=== PATIENT | male | born 1945 | race African-American/Black ===

== ENCOUNTER 2019-09-06 09:27 | Inpatient (IN) | payer MEDICARE, OTHER ==
[~2019-09-06] VITALS: Ht 172.7 cm; Wt 95.7 kg
[2019-09-06] VITALS (11 sets, daily range): BP systolic 115–185; BP diastolic 57–88
[~2019-09-06 09:27] MED LIST: ASA; CLONIDINE PO; COZAAR PO; DIOVAN; HCTZ; LOVAZA; METFORMIN; ZOCOR; [UNRECOGNIZED DRUG - OTHER]
[2019-09-06] MEDS ORDERED: ETOMIDATE 2MG/ML 10ML VIAL IV ONE ×2 (10:02→10:30)
[2019-09-06] MEDS ORDERED: SUCCINYLCHOLINE CHLORIDE 200MG/10ML IV ONE ×2 (10:02→10:30)
[2019-09-06] MEDS ORDERED: PROPOFOL 10MG/ML 100ML 100 ML IV ONE ×3 (10:30→20:59)
[2019-09-06 11:02] LABS: BG BASE EXCESS -21.5 mmol/L (-2.0-2.0); BG CARBOXYHEMOGLOBIN 0.2 % (0.5-1.5); BG DEOXYHEMOGLOBIN 3.7 % (0.0-5.0); BG HCO3 ACT 10.8 mmol/L (22.0-26.0); BG METHEMOGLOBIN 0.3 % (0.0-1.5); BG OXYGEN SATURATION 96.3 % (92.0-98.5); BG OXYHEMOGLOBIN 95.8 % (94.0-97.0); BG PCO2 53.7 mmHg (35.0-45.0); BG PO2 119.2 mmHg (75.0-100.0); BG SAMPLE SITE RIGHT RADIAL; BG TIDAL VOLUME(mL) 500 mL; BG TOTAL HEMOGLOBIN 11.7 g/dL (12.0-18.0); BG VENT MODE VENT - A/C; BG VENT RATE 12 set
[2019-09-06 11:15] LABS: CHLORIDE 113 mEq/L (98-107)
[2019-09-06 11:21] LABS: PROTHROMBIN TIME 11.2 sec (9.6-11.0)
[2019-09-06 11:32] LABS: BASOPHILS % 1.1 % (0.0-2.0); EOSINOPHILS % 1.8 % (0.0-5.0); HEMATOCRIT. 36.5 % (42.0-52.0); HEMOGLOBIN. 11.6 g/dL (14.0-18.0); LYMPHOCYTES % 32.3 % (20.0-50.0); MEAN CORPUSCULAR HEMOGLOBIN 28.8 pg (28.0-32.0); MEAN CORPUSCULAR VOLUME 91.2 fL (80.0-94.0); MEAN PLATELET VOLUME 10.6 fl (7.4-10.4); NEUTROPHILS % 57.8 % (40.0-76.0); PLATELET 248 x1000/uL (130-400); RED BLOOD CELL COUNT 4.01 mill/uL (4.7-6.1); RED CELL DISTRIBUTION WIDTH 18.5 % (11.6-14.6)
[2019-09-06] MEDS ORDERED: FUROSEMIDE 100MG/10ML VIAL IV STA (13:07)
[2019-09-06] MEDS ORDERED: SODIUM BICARBONATE 8.4% 1 MEQ/ML 50ML SYR IV ONE (13:15)
[2019-09-06] MEDS ORDERED: CALCIUM CHLORIDE 1GM/10ML SYR IV ONE (13:15)
[2019-09-06] MEDS ORDERED: ALBUTEROL (0.083%) 2.5MG/3ML NEB HHN ONE (13:15)
[2019-09-06] MEDS ORDERED: INSULIN REGULAR (HUMULIN R) 300UNITS/3ML IV ONE (13:15)
[2019-09-06] MEDS ORDERED: DEXTROSE 50% WATER 50ML SYRINGE IV ONE (13:15)
[2019-09-06] MEDS ORDERED: VANCOMYCIN 1 G PREMIX 200 ML IV ONE (13:30)
[2019-09-06] MEDS ORDERED: PIPERACILLIN/TAZ 3.375G PREMIX 50 ML IV ONE (13:30)
[2019-09-06] MEDS ORDERED: DEXTROSE 50% WATER 50ML SYRINGE IV PRN (13:45)
[2019-09-06] MEDS ORDERED: ACETAMINOPHEN 325MG TABLET PO PRN (13:45)
[2019-09-06] MEDS ORDERED: ONDANSETRON HCL 4MG/2ML INJ IV PRN (13:45)
[2019-09-06] MEDS ORDERED: AZITHROMYCIN 500 MG in DEXT 5% WATER 250 ML IV SCH (14:15)
[2019-09-06] MEDS ORDERED: CEFTRIAXONE 1 G PREMIX 50 ML IV SCH (14:15)
[2019-09-06 16:25] LABS: C REACTIVE PROTEIN QUANT 0.6 mg/L (0.0-3.0)
[2019-09-06] MEDS ORDERED: NOREPINEPHRINE 4MG/250ML PMX 250 ML IV NR (17:00)
[2019-09-06] MEDS ORDERED: BLOOD SUGAR DIAGNOSTIC STRIP TEST SCH (17:00)
[2019-09-06] MEDS: BLOOD SUGAR DIAGNOSTIC STRIP TEST SCH ×3 (17:00→23:36)
[2019-09-06 17:17] LABS: BG BASE EXCESS -19.6 mmol/L (-2.0-2.0); BG CARBOXYHEMOGLOBIN 0.3 % (0.5-1.5); BG DEOXYHEMOGLOBIN 3.1 % (0.0-5.0); BG HCO3 ACT 11.4 mmol/L (22.0-26.0); BG METHEMOGLOBIN 0.3 % (0.0-1.5); BG OXYGEN SATURATION 96.9 % (92.0-98.5); BG OXYHEMOGLOBIN 96.3 % (94.0-97.0); BG PCO2 50.5 mmHg (35.0-45.0); BG PH 6.972 (7.350-7.450); BG PO2 109.2 mmHg (75.0-100.0); BG SAMPLE SITE RIGHT BRACHIAL; BG TIDAL VOLUME(mL) 500 mL; BG VENT MODE VENT - A/C; BG VENT RATE 18 set
[2019-09-06] MEDS ORDERED: SODIUM BICARBONATE 8.4% 1 MEQ/ML 50ML SYR IV NR ×2 (18:17→22:45)
[2019-09-06] MEDS: INSULIN LISPRO 100 UNITS/ML SUBCUT SCH ×3 (18:34→23:36)
[2019-09-06] MEDS: SODIUM BICARBONATE 150 MEQ in DEXTROSE 5% WATER 1,000 ML IV SCH (18:53)
[2019-09-06] MEDS ORDERED: AMLODIPINE 5MG TABLET PO SCH (21:00)
[2019-09-06] MEDS ORDERED: INSULIN LISPRO 100 UNITS/ML SUBCUT SCH (21:00)
[2019-09-06 22:16] LABS: BG BASE EXCESS -16.5 mmol/L (-2.0-2.0); BG CARBOXYHEMOGLOBIN 0.3 % (0.5-1.5); BG DEOXYHEMOGLOBIN 1.1 % (0.0-5.0); BG FRACTION INSPIRED OXYGEN 100; BG HCO3 ACT 12.1 mmol/L (22.0-26.0); BG METHEMOGLOBIN 0.3 % (0.0-1.5); BG OXYGEN SATURATION 98.9 % (92.0-98.5); BG OXYHEMOGLOBIN 98.3 % (94.0-97.0); BG PH 7.109 (7.350-7.450); BG PO2 155.9 mmHg (75.0-100.0); BG SAMPLE SITE LEFT RADIAL; BG TIDAL VOLUME(mL) 500 mL; BG TOTAL HEMOGLOBIN 10.1 g/dL (12.0-18.0); BG VENT MODE VENT - A/C; BG VENT RATE 18 set
[2019-09-06] MEDS: PROPOFOL 10MG/ML 100ML 100 ML IV PRN (23:07)
[2019-09-07] VITALS (86 sets, daily range): BP systolic 101–190; BP diastolic 44–122
[2019-09-07] MEDS: IPRATROPIUM/ALBUTEROL 0.5-3(2.5)MG/3ML NEB HHN SCH ×4 (02:00→20:29)
[2019-09-07] MEDS: PROPOFOL 10MG/ML 100ML 100 ML IV PRN ×4 (02:55→15:56)
[2019-09-07 05:42] LABS: BASOPHILS % 0.2 % (0.0-2.0); HEMATOCRIT. 26.6 % (42.0-52.0); HEMOGLOBIN. 8.8 g/dL (14.0-18.0); LYMPHOCYTES % 8.2 % (20.0-50.0); MEAN CORPUSCULAR HEMOGLOBIN 28.4 pg (28.0-32.0); MEAN CORPUSCULAR VOLUME 86.1 fL (80.0-94.0); MEAN PLATELET VOLUME 10.3 fl (7.4-10.4); MONOCYTES % 11.5 % (2.0-8.0); NEUTROPHILS % 80.1 % (40.0-76.0); PLATELET 149 x1000/uL (130-400); RED BLOOD CELL COUNT 3.09 mill/uL (4.7-6.1); RED CELL DISTRIBUTION WIDTH 17.5 % (11.6-14.6)
[2019-09-07 05:49] LABS: CHLORIDE 113 mEq/L (98-107)
[2019-09-07 06:02] LABS: PHOSPHORUS 4.9 mg/dL (2.5-4.9)
[2019-09-07 06:03] LABS: LDL CHOLESTEROL 49 mg/dL (5-100)
[2019-09-07 06:05] LABS: HDL CHOLESTEROL 69 mg/dL (40-59)
[2019-09-07] MEDS: INSULIN LISPRO 100 UNITS/ML SUBCUT SCH ×4 (06:30→20:37)
[2019-09-07] MEDS: BLOOD SUGAR DIAGNOSTIC STRIP TEST SCH ×4 (06:30→20:37)
[2019-09-07] MEDS ORDERED: LIDOCAINE HCL 1% 20ML VIAL (Pyxis) INJ ONE (07:44)
[2019-09-07] MEDS ORDERED: HEPARIN 1000 UNITS/ML 10ML ONE (07:45)
[2019-09-07] MEDS: PANTOPRAZOLE SODIUM 40 MG/VIAL IV SCH (08:46)
[2019-09-07] MEDS ORDERED: ENOXAPARIN 30MG/0.3ML SYR SUBCUT SCH (09:00)
[2019-09-07] MEDS: SODIUM BICARBONATE 150 MEQ in DEXTROSE 5% WATER 1,000 ML IV SCH ×2 (09:58→21:02)
[2019-09-07 10:32] LABS: BG BASE EXCESS -6.7 mmol/L (-2.0-2.0); BG CARBOXYHEMOGLOBIN 0.3 % (0.5-1.5); BG DEOXYHEMOGLOBIN 1.2 % (0.0-5.0); BG FRACTION INSPIRED OXYGEN 50; BG HCO3 ACT 16.9 mmol/L (22.0-26.0); BG METHEMOGLOBIN 0.3 % (0.0-1.5); BG OXYGEN SATURATION 98.8 % (92.0-98.5); BG OXYHEMOGLOBIN 98.2 % (94.0-97.0); BG PCO2 26.3 mmHg (35.0-45.0); BG PH 7.425 (7.350-7.450); BG PO2 144.1 mmHg (75.0-100.0); BG SAMPLE SITE RIGHT RADIAL; BG TIDAL VOLUME(mL) 550 mL; BG TOTAL HEMOGLOBIN 7.3 g/dL (12.0-18.0); BG VENT MODE VENT - A/C; BG VENT RATE 26 set
[2019-09-07] MEDS ORDERED: CLONIDINE 0.1MG TABLET PO SCH (13:00)
[2019-09-07] MEDS: LOSARTAN POTASSIUM 100 MG TABLET PO SCH (13:42)
[2019-09-07] MEDS: AMLODIPINE 10MG TABLET PO SCH (13:43)
[2019-09-07] MEDS ORDERED: AZITHROMYCIN 500 MG in DEXT 5% WATER 250 ML IV SCH (13:45)
[2019-09-07] MEDS ORDERED: CEFTRIAXONE 1 G PREMIX 50 ML IV SCH (14:30)
[2019-09-07] MEDS: MORPHINE SULFATE 2 MG/ML CPJ (NOT FOR IM USE) IV PRN (14:39)
[2019-09-07] MEDS: AZITHROMYCIN 500 MG in DEXT 5% WATER 250 ML IV SCH (15:58)
[2019-09-07] MEDS ORDERED: MONT10TA26 PO (16:34)
[2019-09-07] MEDS ORDERED: TRIA50CA2 PO (16:34)
[2019-09-07] MEDS ORDERED: AMLO10TA80 MT (16:34)
[2019-09-07] MEDS ORDERED: LORA10TA7 PO (16:34)
[2019-09-07] MEDS: CLONIDINE 0.1MG TABLET PO SCH (20:37)
[2019-09-07] MEDS: ENOXAPARIN 40MG/0.4ML SYR SUBCUT SCH (20:38)
[2019-09-08] VITALS (47 sets, daily range): BP systolic 133–203; BP diastolic 58–101
[2019-09-08] MEDS: PROPOFOL 10MG/ML 100ML 100 ML IV PRN ×2 (01:11→05:40)
[2019-09-08] MEDS: IPRATROPIUM/ALBUTEROL 0.5-3(2.5)MG/3ML NEB HHN SCH ×4 (02:14→21:21)
[2019-09-08] MEDS: CLONIDINE 0.1MG TABLET PO SCH ×3 (05:39→21:19)
[2019-09-08 05:51] LABS: BASOPHILS % 0.9 % (0.0-2.0); EOSINOPHILS % 0.2 % (0.0-5.0); HEMATOCRIT. 26.8 % (42.0-52.0); HEMOGLOBIN. 9.2 g/dL (14.0-18.0); MEAN CORPUSCULAR HEMOGLOBIN 29.3 pg (28.0-32.0); MEAN CORPUSCULAR VOLUME 85.2 fL (80.0-94.0); MEAN PLATELET VOLUME 10.9 fl (7.4-10.4); MONOCYTES % 12.7 % (2.0-8.0); NEUTROPHILS % 70.2 % (40.0-76.0); PLATELET 167 x1000/uL (130-400); RED BLOOD CELL COUNT 3.15 mill/uL (4.7-6.1); RED CELL DISTRIBUTION WIDTH 17.8 % (11.6-14.6)
[2019-09-08 05:52] LABS: CHLORIDE 104 mEq/L (98-107)
[2019-09-08] MEDS: SODIUM BICARBONATE 150 MEQ in DEXTROSE 5% WATER 1,000 ML IV SCH (06:00)
[2019-09-08 06:12] LABS: PHOSPHORUS 4.4 mg/dL (2.5-4.9)
[2019-09-08] MEDS: BLOOD SUGAR DIAGNOSTIC STRIP TEST SCH ×4 (07:50→21:00)
[2019-09-08] MEDS: INSULIN LISPRO 100 UNITS/ML SUBCUT SCH ×4 (07:58→21:00)
[2019-09-08] MEDS: AMLODIPINE 10MG TABLET PO SCH (08:09)
[2019-09-08] MEDS: LOSARTAN POTASSIUM 100 MG TABLET PO SCH (08:09)
[2019-09-08] MEDS: PANTOPRAZOLE SODIUM 40 MG/VIAL IV SCH (08:09)
[2019-09-08 08:48] LABS: BG BASE EXCESS 5.4 mmol/L (-2.0-2.0); BG CARBOXYHEMOGLOBIN 0.3 % (0.5-1.5); BG DEOXYHEMOGLOBIN 1.4 % (0.0-5.0); BG FRACTION INSPIRED OXYGEN 40; BG HCO3 ACT 26.5 mmol/L (22.0-26.0); BG METHEMOGLOBIN 0.2 % (0.0-1.5); BG OXYGEN SATURATION 98.6 % (92.0-98.5); BG OXYHEMOGLOBIN 98.1 % (94.0-97.0); BG PCO2 26.7 mmHg (35.0-45.0); BG PH 7.615 (7.350-7.450); BG PO2 133.6 mmHg (75.0-100.0); BG SAMPLE SITE RIGHT RADIAL; BG TIDAL VOLUME(mL) 550 mL; BG VENT MODE VENT - A/C; BG VENT RATE 24 set
[2019-09-08 11:36] LABS: BG BASE EXCESS 5.1 mmol/L (-2.0-2.0); BG CARBOXYHEMOGLOBIN 0.3 % (0.5-1.5); BG DEOXYHEMOGLOBIN 1.4 % (0.0-5.0); BG FRACTION INSPIRED OXYGEN 40; BG HCO3 ACT 27.8 mmol/L (22.0-26.0); BG METHEMOGLOBIN 0.3 % (0.0-1.5); BG OXYGEN SATURATION 98.6 % (92.0-98.5); BG PCO2 33.8 mmHg (35.0-45.0); BG PH 7.533 (7.350-7.450); BG PO2 146.6 mmHg (75.0-100.0); BG PRESSURE SUPPORT 8; BG SAMPLE SITE RIGHT RADIAL; BG TOTAL HEMOGLOBIN 10.1 g/dL (12.0-18.0); BG VENT MODE VENT - CPAP
[2019-09-08] MEDS: AZITHROMYCIN 500 MG in DEXT 5% WATER 250 ML IV SCH (12:46)
[2019-09-08] MEDS: CEFTRIAXONE 1 G PREMIX 50 ML IV SCH (14:49)
[2019-09-08] MEDS: ENOXAPARIN 40MG/0.4ML SYR SUBCUT SCH (21:09)
[2019-09-09] VITALS (38 sets, daily range): BP systolic 124–180; BP diastolic 51–83
[2019-09-09] MEDS: MORPHINE SULFATE 2 MG/ML CPJ (NOT FOR IM USE) IV PRN (01:48)
[2019-09-09] MEDS: IPRATROPIUM/ALBUTEROL 0.5-3(2.5)MG/3ML NEB HHN SCH ×4 (02:12→20:40)
[2019-09-09] MEDS: CLONIDINE 0.1MG TABLET PO SCH ×3 (05:20→21:08)
[2019-09-09 05:33] LABS: HEMATOCRIT. 27.5 % (42.0-52.0); HEMOGLOBIN. 9.1 g/dL (14.0-18.0); MEAN CORPUSCULAR HEMOGLOBIN 28.8 pg (28.0-32.0); MEAN CORPUSCULAR VOLUME 86.7 fL (80.0-94.0); MEAN PLATELET VOLUME 10.6 fl (7.4-10.4); RED BLOOD CELL COUNT 3.17 mill/uL (4.7-6.1); RED CELL DISTRIBUTION WIDTH 17.9 % (11.6-14.6)
[2019-09-09 05:45] LABS: CHLORIDE 105 mEq/L (98-107)
[2019-09-09 05:53] LABS: PHOSPHORUS 3.8 mg/dL (2.5-4.9)
[2019-09-09] MEDS: BLOOD SUGAR DIAGNOSTIC STRIP TEST SCH ×4 (07:50→21:07)
[2019-09-09] MEDS: INSULIN LISPRO 100 UNITS/ML SUBCUT SCH ×4 (08:20→21:00)
[2019-09-09] MEDS: PANTOPRAZOLE SODIUM 40 MG/VIAL IV SCH (08:33)
[2019-09-09] MEDS: AMLODIPINE 10MG TABLET PO SCH (08:34)
[2019-09-09] MEDS: LOSARTAN POTASSIUM 100 MG TABLET PO SCH (08:36)
[2019-09-09 08:59] LABS: PLATELET ESTIMATE SLIGHTLY DECREASED
[2019-09-09 09:01] LABS: PLATELET 99 x1000/uL (130-400)
[2019-09-09] MEDS: AZITHROMYCIN 500 MG in DEXT 5% WATER 250 ML IV SCH (13:44)
[2019-09-09] MEDS: CEFTRIAXONE 1 G PREMIX 50 ML IV SCH (13:44)
[2019-09-10] VITALS (24 sets, daily range): BP systolic 128–165; BP diastolic 51–98
[2019-09-10] MEDS: IPRATROPIUM/ALBUTEROL 0.5-3(2.5)MG/3ML NEB HHN SCH ×4 (01:05→20:34)
[2019-09-10 05:44] LABS: HEMATOCRIT. 24.4 % (42.0-52.0); HEMOGLOBIN. 8.3 g/dL (14.0-18.0); MEAN CORPUSCULAR VOLUME 85.6 fL (80.0-94.0); MEAN PLATELET VOLUME 9.9 fl (7.4-10.4); PLATELET 146 x1000/uL (130-400); RED BLOOD CELL COUNT 2.85 mill/uL (4.7-6.1)
[2019-09-10 05:56] LABS: PHOSPHORUS 4.6 mg/dL (2.5-4.9)
[2019-09-10] MEDS: CLONIDINE 0.1MG TABLET PO SCH ×3 (06:49→21:15)
[2019-09-10 07:51] LABS: NUCLEATED RED BLOOD CELLS 1 /100 WBC; PLATELET ESTIMATE NORMAL
[2019-09-10] MEDS: BLOOD SUGAR DIAGNOSTIC STRIP TEST SCH ×4 (08:11→21:15)
[2019-09-10] MEDS: INSULIN LISPRO 100 UNITS/ML SUBCUT SCH ×4 (08:11→21:21)
[2019-09-10] MEDS: LOSARTAN POTASSIUM 100 MG TABLET PO SCH (08:29)
[2019-09-10] MEDS: PANTOPRAZOLE SODIUM 40 MG/VIAL IV SCH (08:29)
[2019-09-10] MEDS: AZITHROMYCIN 500 MG TABLET PO SCH (08:30)
[2019-09-10] MEDS: AMLODIPINE 10MG TABLET PO SCH (08:30)
[2019-09-10] MEDS: CEFTRIAXONE 1 G PREMIX 50 ML IV SCH (13:30)
[2019-09-11] VITALS (8 sets, daily range): BP systolic 127–152; BP diastolic 49–70
[2019-09-11] MEDS: CLONIDINE 0.1MG TABLET PO SCH ×3 (05:08→21:24)
[2019-09-11] MEDS: BLOOD SUGAR DIAGNOSTIC STRIP TEST SCH ×4 (07:19→20:41)
[2019-09-11 08:23] LABS: HEMATOCRIT. 23.8 % (42.0-52.0); MEAN CORPUSCULAR HEMOGLOBIN 28.8 pg (28.0-32.0); MEAN CORPUSCULAR VOLUME 86.2 fL (80.0-94.0); MEAN PLATELET VOLUME 9.9 fl (7.4-10.4); PLATELET 136 x1000/uL (130-400); RED BLOOD CELL COUNT 2.77 mill/uL (4.7-6.1); RED CELL DISTRIBUTION WIDTH 17.1 % (11.6-14.6)
[2019-09-11] MEDS: IPRATROPIUM/ALBUTEROL 0.5-3(2.5)MG/3ML NEB HHN SCH ×3 (08:49→21:38)
[2019-09-11 08:50] LABS: PHOSPHORUS 4.9 mg/dL (2.5-4.9)
[2019-09-11] MEDS: LOSARTAN POTASSIUM 100 MG TABLET PO SCH (08:56)
[2019-09-11] MEDS: PANTOPRAZOLE SODIUM 40 MG/VIAL IV SCH (08:56)
[2019-09-11] MEDS: INSULIN LISPRO 100 UNITS/ML SUBCUT SCH ×4 (08:56→20:41)
[2019-09-11] MEDS: AMLODIPINE 10MG TABLET PO SCH (08:56)
[2019-09-11] MEDS: AZITHROMYCIN 500 MG TABLET PO SCH (08:57)
[2019-09-11 09:11] LABS: PLATELET ESTIMATE NORMAL
[2019-09-11 12:29] LABS: TOTAL IRON BINDING CAPACITY 225 ug/dL (250-450)
[2019-09-11 12:38] LABS: FOLIC ACID (FOLATE) SERUM 7.1 ng/mL (>5.38)
[2019-09-11] MEDS: CEFTRIAXONE 1 G PREMIX 50 ML IV SCH (15:16)
[2019-09-11] MEDS: DOCUSATE SODIUM 250MG CAPSULE PO SCH (15:21)
[2019-09-11] MEDS: FERROUS SULFATE 325MG TABLET PO SCH (16:50)
[2019-09-12 00:22] VITALS: BP 114/66
[2019-09-12] MEDS: IPRATROPIUM/ALBUTEROL 0.5-3(2.5)MG/3ML NEB HHN SCH ×3 (01:57→13:40)
[2019-09-12 04:00] VITALS: BP 142/62
[2019-09-12] MEDS: CLONIDINE 0.1MG TABLET PO SCH ×3 (05:40→20:11)
[2019-09-12] MEDS: BLOOD SUGAR DIAGNOSTIC STRIP TEST SCH ×4 (06:25→20:11)
[2019-09-12] MEDS: INSULIN LISPRO 100 UNITS/ML SUBCUT SCH ×4 (06:25→20:58)
[2019-09-12 07:15] LABS: HEMATOCRIT. 24.6 % (42.0-52.0); HEMOGLOBIN. 8.3 g/dL (14.0-18.0); MEAN CORPUSCULAR HEMOGLOBIN 28.8 pg (28.0-32.0); MEAN CORPUSCULAR VOLUME 85.6 fL (80.0-94.0); MEAN PLATELET VOLUME 10.1 fl (7.4-10.4); PLATELET 154 x1000/uL (130-400); RED BLOOD CELL COUNT 2.88 mill/uL (4.7-6.1); RED CELL DISTRIBUTION WIDTH 16.7 % (11.6-14.6)
[2019-09-12 08:00] VITALS: BP 121/53
[2019-09-12] MEDS: DOCUSATE SODIUM 250MG CAPSULE PO SCH (08:46)
[2019-09-12] MEDS: FERROUS SULFATE 325MG TABLET PO SCH ×3 (08:46→18:29)
[2019-09-12] MEDS: PANTOPRAZOLE SODIUM 40 MG/VIAL IV SCH (08:46)
[2019-09-12] MEDS: AMLODIPINE 10MG TABLET PO SCH (08:47)
[2019-09-12] MEDS: LOSARTAN POTASSIUM 100 MG TABLET PO SCH (08:47)
[2019-09-12 12:00] VITALS: BP 142/50
[2019-09-12 14:06] LABS: PLATELET ESTIMATE NORMAL
[2019-09-12] MEDS ORDERED: IPRATROPIUM/ALBUTEROL 0.5-3(2.5)MG/3ML NEB HHN PRN (15:30)
[2019-09-12 20:00] VITALS: BP 136/57
[2019-09-13] VITALS: BP 141/62
[2019-09-13 04:00] VITALS: BP 133/57
[2019-09-13] MEDS: CLONIDINE 0.1MG TABLET PO SCH ×3 (05:21→20:54)
[2019-09-13] MEDS: BLOOD SUGAR DIAGNOSTIC STRIP TEST SCH ×4 (05:45→20:54)
[2019-09-13 06:54] LABS: HEMATOCRIT. 26.2 % (42.0-52.0); HEMOGLOBIN. 8.8 g/dL (14.0-18.0); MEAN CORPUSCULAR HEMOGLOBIN 28.8 pg (28.0-32.0); MEAN CORPUSCULAR VOLUME 85.7 fL (80.0-94.0); MEAN PLATELET VOLUME 10.1 fl (7.4-10.4); PLATELET 185 x1000/uL (130-400); RED BLOOD CELL COUNT 3.05 mill/uL (4.7-6.1); RED CELL DISTRIBUTION WIDTH 16.4 % (11.6-14.6)
[2019-09-13 07:45] VITALS: BP 146/63
[2019-09-13] MEDS: INSULIN LISPRO 100 UNITS/ML SUBCUT SCH ×4 (07:50→21:00)
[2019-09-13] MEDS: DOCUSATE SODIUM 250MG CAPSULE PO SCH (09:00)
[2019-09-13] MEDS: PANTOPRAZOLE SODIUM 40 MG/VIAL IV SCH (09:28)
[2019-09-13] MEDS: FERROUS SULFATE 325MG TABLET PO SCH (09:28)
[2019-09-13] MEDS: AMLODIPINE 10MG TABLET PO SCH (09:29)
[2019-09-13] MEDS: LOSARTAN POTASSIUM 100 MG TABLET PO SCH (09:29)
[2019-09-13 11:45] VITALS: BP 143/65
[2019-09-13] MEDS: SUCRALFATE 1 G/10 ML UDC PO SCH ×3 (13:15→20:56)
[2019-09-13 13:29] LABS: PLATELET ESTIMATE NORMAL
[2019-09-13 15:40] VITALS: BP 164/70
[2019-09-13] MEDS: SODIUM CHLORIDE 0.9% 1,000 ML IV SCH (16:22)
[2019-09-13] MEDS: FAMOTIDINE 20MG TABLET PO SCH (20:53)
[2019-09-13 22:51] LABS: CLARITY URINE CLEAR (CLEAR); COLOR URINE YELLOW (YELLOW); KETONES URINE NEGATIVE (NEGATIVE); LEUKOCYTE ESTERASE URINE NEGATIVE (NEGATIVE); NITRITE URINE NEGATIVE (NEGATIVE); OCCULT BLOOD URINE 1+ (NEGATIVE); PROTEIN URINE 3+ (NEGATIVE); SPECIFIC GRAVITY URINE 1.013 (1.005-1.030); UROBILINOGEN URINE 0.2 E.U./dL (0.2-1.0)
[2019-09-14] VITALS: BP 152/88
[2019-09-14] MEDS: SODIUM CHLORIDE 0.9% 1,000 ML IV SCH ×2 (00:45→10:45)
[2019-09-14 04:00] VITALS: BP 161/72
[2019-09-14] MEDS: CLONIDINE 0.1MG TABLET PO SCH ×3 (05:35→22:50)
[2019-09-14] MEDS: SUCRALFATE 1 G/10 ML UDC PO SCH ×4 (05:35→22:48)
[2019-09-14] MEDS: BLOOD SUGAR DIAGNOSTIC STRIP TEST SCH ×4 (05:35→22:51)
[2019-09-14 07:01] LABS: PHOSPHORUS 3.7 mg/dL (2.5-4.9)
[2019-09-14 07:17] LABS: BASOPHILS % 0.9 % (0.0-2.0); EOSINOPHILS % 2.6 % (0.0-5.0); HEMATOCRIT. 28.7 % (42.0-52.0); HEMOGLOBIN. 9.4 g/dL (14.0-18.0); LYMPHOCYTES % 13.4 % (20.0-50.0); MEAN CORPUSCULAR HEMOGLOBIN 28.4 pg (28.0-32.0); MEAN CORPUSCULAR VOLUME 86.9 fL (80.0-94.0); MEAN PLATELET VOLUME 10.1 fl (7.4-10.4); MONOCYTES % 13.2 % (2.0-8.0); NEUTROPHILS % 69.9 % (40.0-76.0); PLATELET 209 x1000/uL (130-400); RED CELL DISTRIBUTION WIDTH 16.2 % (11.6-14.6)
[2019-09-14] MEDS: INSULIN LISPRO 100 UNITS/ML SUBCUT SCH ×4 (07:50→21:00)
[2019-09-14 08:06] VITALS: BP 143/55
[2019-09-14] MEDS: AMLODIPINE 10MG TABLET PO SCH ×2 (09:35→22:49)
[2019-09-14] MEDS: DOCUSATE SODIUM 250MG CAPSULE PO SCH (09:35)
[2019-09-14] MEDS: TAMSULOSIN HCL 0.4MG SR CAPSULE PO SCH (11:45)
[2019-09-14 12:04] VITALS: BP 156/58
[2019-09-14 16:03] VITALS: BP 145/60
[2019-09-14 20:00] VITALS: BP 151/67
[2019-09-14] MEDS: FAMOTIDINE 20MG TABLET PO SCH (22:49)
[2019-09-15] VITALS: BP 145/72
[2019-09-15 04:00] VITALS: BP 140/66
[2019-09-15] MEDS: SODIUM CHLORIDE 0.9% 1,000 ML IV SCH (04:17)
[2019-09-15] MEDS: CLONIDINE 0.1MG TABLET PO SCH ×2 (06:21→13:29)
[2019-09-15] MEDS: SUCRALFATE 1 G/10 ML UDC PO SCH ×4 (06:21→20:40)
[2019-09-15] MEDS: BLOOD SUGAR DIAGNOSTIC STRIP TEST SCH ×4 (06:22→21:29)
[2019-09-15 07:25] LABS: BASOPHILS % 1.2 % (0.0-2.0); EOSINOPHILS % 0.9 % (0.0-5.0); HEMATOCRIT. 28.2 % (42.0-52.0); HEMOGLOBIN. 9.2 g/dL (14.0-18.0); LYMPHOCYTES % 11.2 % (20.0-50.0); MEAN CORPUSCULAR HEMOGLOBIN 28.2 pg (28.0-32.0); MEAN CORPUSCULAR VOLUME 86.8 fL (80.0-94.0); NEUTROPHILS % 74.7 % (40.0-76.0); PLATELET 238 x1000/uL (130-400); RED BLOOD CELL COUNT 3.25 mill/uL (4.7-6.1); RED CELL DISTRIBUTION WIDTH 16.3 % (11.6-14.6)
[2019-09-15 07:49] LABS: PHOSPHORUS 3.9 mg/dL (2.5-4.9)
[2019-09-15] MEDS: INSULIN LISPRO 100 UNITS/ML SUBCUT SCH ×4 (07:50→21:00)
[2019-09-15 08:00] VITALS: BP 177/85
[2019-09-15] MEDS: TAMSULOSIN HCL 0.4MG SR CAPSULE PO SCH (09:00)
[2019-09-15 09:07] LABS: *CREATININE RANDOM URINE 105.1 mg/dL (Not Estab.); MICROALBUMIN RANDOM URINE 1118.5 ug/mL (Not Estab.)
[2019-09-15] MEDS: DOCUSATE SODIUM 250MG CAPSULE PO SCH (10:50)
[2019-09-15] MEDS: AMLODIPINE 10MG TABLET PO SCH ×2 (10:51→20:41)
[2019-09-15 12:00] VITALS: BP 169/69
[2019-09-15] MEDS ORDERED: HYDRALAZINE HCL 25MG TABLET PO SCH (13:00)
[2019-09-15 16:00] VITALS: BP_SYST 150; BP_DIAS 56; BP_DIAS 86
[2019-09-15] MEDS: HYDRALAZINE HCL 50MG TABLET PO SCH ×2 (17:58→20:58)
[2019-09-15 20:00] VITALS: BP 120/50
[2019-09-15] MEDS: FAMOTIDINE 20MG TABLET PO SCH (20:40)
[2019-09-15] MEDS ORDERED: HYDRALAZINE HCL 50MG TABLET PO SCH (21:00)
[2019-09-16] VITALS: BP 124/78
[2019-09-16] MEDS: SODIUM CHLORIDE 0.9% 1,000 ML IV SCH (00:17)
[2019-09-16 04:00] VITALS: BP 127/98
[2019-09-16] MEDS: HYDRALAZINE HCL 50MG TABLET PO SCH ×2 (04:14→14:28)
[2019-09-16] MEDS: SUCRALFATE 1 G/10 ML UDC PO SCH ×2 (04:15→12:49)
[2019-09-16] MEDS: BLOOD SUGAR DIAGNOSTIC STRIP TEST SCH ×2 (04:15→12:43)
[2019-09-16 06:47] LABS: BASOPHILS % 1.1 % (0.0-2.0); EOSINOPHILS % 0.6 % (0.0-5.0); HEMATOCRIT. 26.2 % (42.0-52.0); HEMOGLOBIN. 8.7 g/dL (14.0-18.0); LYMPHOCYTES % 10.4 % (20.0-50.0); MEAN CORPUSCULAR HEMOGLOBIN 28.3 pg (28.0-32.0); MEAN CORPUSCULAR VOLUME 85.7 fL (80.0-94.0); MEAN PLATELET VOLUME 9.7 fl (7.4-10.4); MONOCYTES % 12.3 % (2.0-8.0); NEUTROPHILS % 75.6 % (40.0-76.0); PLATELET 244 x1000/uL (130-400); RED BLOOD CELL COUNT 3.06 mill/uL (4.7-6.1); RED CELL DISTRIBUTION WIDTH 16.3 % (11.6-14.6)
[2019-09-16] MEDS: INSULIN LISPRO 100 UNITS/ML SUBCUT SCH ×2 (07:57→12:43)
[2019-09-16 08:00] VITALS: BP 144/72
[2019-09-16] MEDS: DOCUSATE SODIUM 250MG CAPSULE PO SCH (09:02)
[2019-09-16] MEDS: TAMSULOSIN HCL 0.4MG SR CAPSULE PO SCH (09:02)
[2019-09-16] MEDS: AMLODIPINE 10MG TABLET PO SCH (09:03)
[2019-09-16 12:00] VITALS: BP 144/63
[2019-09-16 16:00] VITALS: BP 121/54
[2019-09-16] MEDS ORDERED: HYDR100T26 MT (16:48)
[2019-09-16] MEDS ORDERED: AMLO10TA80 MT (16:48)
[2019-09-16] MEDS ORDERED: TAMS-11 MT (16:51)
[2019-09-16 17:05] VITALS: BP 121/54
[2019-09-16] MEDS ORDERED: FAMOTIDINE 20MG TABLET PO SCH (21:00)
== END 2019-09-16 18:30 | disposition home or self-care (01) | DRG 871 ==
LOC: ER 09:27 → EDBEDREQSVC 11:26 → EDBEDREQ 12:42 → MICUSO 13:32 → EDBEDREQ 13:54 → ENRESERV 19:46 → CVICU 09-07 18:30 → 6WST 09-11 03:07
PROVIDERS: ADMIT Internal Medicine; ATTEND Internal Medicine
PROC: 5A1945Z Respiratory Ventilation, 24-96 Consecutive Hours (ICD-10-PCS; principal; 2019-09-06)
PROC: 0BH17EZ Insertion of Endotracheal Airway into Trachea, Via Natural or Artificial Opening (ICD-10-PCS; 2019-09-06)
PROC: 06HY33Z Insertion of Infusion Device into Lower Vein, Percutaneous Approach (ICD-10-PCS; 2019-09-06)
PROC: 5A1D70Z Performance of Urinary Filtration, Intermittent, Less than 6 Hours Per Day (ICD-10-PCS; 2019-09-07)
PROC: 02H633Z Insertion of Infusion Device into Right Atrium, Percutaneous Approach (ICD-10-PCS; 2019-09-07)
PROC: B548ZZA Ultrasonography of Superior Vena Cava, Guidance (ICD-10-PCS; 2019-09-07)
PROC: 5A1D70Z Performance of Urinary Filtration, Intermittent, Less than 6 Hours Per Day (ICD-10-PCS; 2019-09-08)
PROC: 5A1D70Z Performance of Urinary Filtration, Intermittent, Less than 6 Hours Per Day (ICD-10-PCS; 2019-09-13)
DX: A41.89 Other specified sepsis (principal); G93.41 Metabolic encephalopathy; J18.9 Pneumonia, unspecified organism; J96.00 Acute respiratory failure, unspecified whether with hypoxia or hypercapnia; J44.0 Chronic obstructive pulmonary disease with (acute) lower respiratory infection; E87.2 Acidosis; E44.0 Moderate protein-calorie malnutrition; N17.9 Acute kidney failure, unspecified; I31.3 Pericardial effusion (noninflammatory); N13.30 Unspecified hydronephrosis; E78.5 Hyperlipidemia, unspecified; E11.22 Type 2 diabetes mellitus with diabetic chronic kidney disease; Z20.828 Contact with and (suspected) exposure to other viral communicable diseases; I12.9 Hypertensive chronic kidney disease with stage 1 through stage 4 chronic kidney disease, or unspecified chronic kidney disease; D50.9 Iron deficiency anemia, unspecified; I44.30 Unspecified atrioventricular block; E87.5 Hyperkalemia; E87.8 Other disorders of electrolyte and fluid balance, not elsewhere classified; N18.9 Chronic kidney disease, unspecified; R74.0 Nonspecific elevation of levels of transaminase and lactic acid dehydrogenase [LDH]; Z87.891 Personal history of nicotine dependence; Z68.32 Body mass index [BMI] 32.0-32.9, adult
CPT/HCPCS: 36415; 36600; 71045; 74176; 76770; 76937; 80048; 80053; 80061; 80076; 81003; 82043; 82270; 82375; 82570; 82607; 82728; 82746; 82805; 82962; 83036; 83540; 83550; 83605; 83615; 83735; 84100; 84145; 84300; 84478; 84484; 85025; 85379; 86140; 87420; 87635; 87804; 92610; 93005; 93306; 94002; 94003; 94640; 96365; 97116; 97162; 99291; C1752; C9113; J0330; J0456; J0696; J1644; J1650; J1815; J1940; J2270; J2543; J2704; J3370; J3490; J7030; J7060; J7070

== ENCOUNTER 2019-09-22 16:12 | Inpatient (IN) | payer MEDICARE ==
[~2019-09-22] VITALS: Ht 182.9 cm; Wt 87.1 kg
[~2019-09-22 16:12] MED LIST changes: +AMLO10TA80 MT; -ASA; -CLONIDINE PO; -COZAAR PO; -DIOVAN; -HCTZ; +HYDR100T26 MT; +LORA10TA7 PO; -LOVAZA; -METFORMIN; +MONT10TA26 PO; +TAMS-11 MT; +TRIA50CA2 PO; -ZOCOR; -[UNRECOGNIZED DRUG - OTHER]
[2019-09-22] MEDS ORDERED: NITROGLYCERIN OINT 1GM/INCH UDPKT TD ONE (18:30)
[2019-09-22] MEDS ORDERED: ASPIRIN 81MG TABLET PO ONE (18:30)
[2019-09-22] MEDS ORDERED: FUROSEMIDE 40MG/4ML VIAL IV ONE (18:30)
[2019-09-22 18:34] LABS: HEMATOCRIT. 27.5 % (42.0-52.0); HEMOGLOBIN. 9.2 g/dL (14.0-18.0); MEAN CORPUSCULAR VOLUME 87.3 fL (80.0-94.0); MEAN PLATELET VOLUME 9.8 fl (7.4-10.4); PLATELET 415 x1000/uL (130-400); RED BLOOD CELL COUNT 3.16 mill/uL (4.7-6.1); RED CELL DISTRIBUTION WIDTH 17.6 % (11.6-14.6)
[2019-09-22 18:36] LABS: CHLORIDE 98 mEq/L (98-107)
[2019-09-22] MEDS ORDERED: INSULIN REGULAR (HUMULIN R) 300UNITS/3ML IV ONE (19:00)
[2019-09-22] MEDS ORDERED: SODIUM BICARBONATE 8.4% 1 MEQ/ML 50ML SYR IV ONE (19:00)
[2019-09-22] MEDS ORDERED: SODIUM POLYSTYRENE SULFONATE 15 G/60 ML BOT PO ONE (19:00)
[2019-09-22] MEDS ORDERED: ALBUTEROL (0.083%) 2.5MG/3ML NEB HHN ONE (19:00)
[2019-09-22] MEDS ORDERED: DEXTROSE 50% WATER 50ML SYRINGE IV ONE (19:00)
[2019-09-22 19:30] LABS: PLATELET ESTIMATE INCREASED
[2019-09-22] MEDS ORDERED: CALCIUM GLUCONATE 1,000 MG in DEXTROSE 5% WATER 50 ML IV ONE (19:30)
[2019-09-22] MEDS ORDERED: DEXTROSE 50% WATER 50ML SYRINGE IV NR (21:15)
[2019-09-22] MEDS ORDERED: SODIUM BICARBONATE 8.4% 1 MEQ/ML 50ML SYR IV NR (21:15)
[2019-09-22] MEDS ORDERED: INSULIN REGULAR (HUMULIN R) 300UNITS/3ML IV NR (21:15)
[2019-09-22] MEDS ORDERED: ALBUTEROL (0.083%) 2.5MG/3ML NEB ONE ×2 (23:26→23:27)
[2019-09-23] VITALS (12 sets, daily range): BP systolic 111–152; BP diastolic 53–88
[2019-09-23] MEDS ORDERED: DEXTROSE 50% WATER 50ML SYRINGE IV PRN (02:15)
[2019-09-23] MEDS: BLOOD SUGAR DIAGNOSTIC STRIP TEST SCH ×4 (06:43→21:00)
[2019-09-23] MEDS: HYDRALAZINE HCL 100MG TABLET PO SCH ×3 (06:48→21:48)
[2019-09-23] MEDS: AMLODIPINE 10MG TABLET PO SCH (08:29)
[2019-09-23] MEDS: LORATADINE 10MG TABLET PO SCH (08:29)
[2019-09-23] MEDS: INSULIN LISPRO 100 UNITS/ML SUBCUT SCH ×4 (08:31→21:48)
[2019-09-23 08:40] LABS: HEMATOCRIT. 25.2 % (42.0-52.0); HEMOGLOBIN. 8.2 g/dL (14.0-18.0); MEAN CORPUSCULAR HEMOGLOBIN 28.2 pg (28.0-32.0); MEAN CORPUSCULAR VOLUME 87.2 fL (80.0-94.0); MEAN PLATELET VOLUME 9.6 fl (7.4-10.4); PLATELET 350 x1000/uL (130-400); RED CELL DISTRIBUTION WIDTH 17.4 % (11.6-14.6)
[2019-09-23] MEDS ORDERED: FUROSEMIDE 40MG/4ML VIAL IVP SCH (09:00)
[2019-09-23] MEDS: TAMSULOSIN HCL 0.4MG SR CAPSULE PO SCH (09:00)
[2019-09-23] MEDS: ASPIRIN 81MG TABLET PO SCH (09:00)
[2019-09-23 13:45] LABS: CLARITY URINE CLEAR (CLEAR); COLOR URINE YELLOW (YELLOW); KETONES URINE NEGATIVE (NEGATIVE); LEUKOCYTE ESTERASE URINE NEGATIVE (NEGATIVE); NITRITE URINE NEGATIVE (NEGATIVE); OCCULT BLOOD URINE NEGATIVE (NEGATIVE); PROTEIN URINE 3+ (NEGATIVE); SPECIFIC GRAVITY URINE 1.014 (1.005-1.030); UROBILINOGEN URINE 0.2 E.U./dL (0.2-1.0)
[2019-09-23] MEDS ORDERED: HEPARIN 1000 UNITS/ML 10ML ONE (14:17)
[2019-09-23] MEDS ORDERED: SODIUM BICARBONATE 4% (2.4MEQ) 5ML VIAL IV ONE (14:17)
[2019-09-23] MEDS ORDERED: LIDOCAINE HCL 1% 20ML VIAL (Pyxis) INJ ONE (14:17)
[2019-09-23 14:20] LABS: PLATELET ESTIMATE NORMAL
[2019-09-23 15:14] LABS: BG BASE EXCESS -4.2 mmol/L (-2.0-2.0); BG CARBOXYHEMOGLOBIN 0.3 % (0.5-1.5); BG DEOXYHEMOGLOBIN 8.2 % (0.0-5.0); BG HCO3 ACT 19.7 mmol/L (22.0-26.0); BG METHEMOGLOBIN 0.2 % (0.0-1.5); BG OXYGEN SATURATION 91.8 % (92.0-98.5); BG OXYHEMOGLOBIN 91.3 % (94.0-97.0); BG PCO2 31.5 mmHg (35.0-45.0); BG PH 7.414 (7.350-7.450); BG PO2 65.1 mmHg (75.0-100.0); BG SAMPLE SITE RIGHT RADIAL; BG VENT MODE NASAL CANNULA
[2019-09-23 16:52] LABS: HEMATOCRIT. 26.9 % (42.0-52.0); HEMOGLOBIN. 8.9 g/dL (14.0-18.0); MEAN CORPUSCULAR HEMOGLOBIN 28.7 pg (28.0-32.0); MEAN CORPUSCULAR VOLUME 86.2 fL (80.0-94.0); MEAN PLATELET VOLUME 9.3 fl (7.4-10.4); PLATELET 412 x1000/uL (130-400); RED BLOOD CELL COUNT 3.12 mill/uL (4.7-6.1); RED CELL DISTRIBUTION WIDTH 17.5 % (11.6-14.6)
[2019-09-23 17:26] LABS: PLATELET ESTIMATE SLIGHTLY INCREASED
[2019-09-23] MEDS: MONTELUKAST SODIUM 10MG TABLET PO SCH (18:50)
[2019-09-24] VITALS (11 sets, daily range): BP systolic 108–134; BP diastolic 46–89
[2019-09-24] MEDS: BLOOD SUGAR DIAGNOSTIC STRIP TEST SCH ×4 (06:00→21:00)
[2019-09-24] MEDS: HYDRALAZINE HCL 100MG TABLET PO SCH ×3 (06:00→21:10)
[2019-09-24 07:25] LABS: BASOPHILS % 0.3 % (0.0-2.0); EOSINOPHILS % 0.6 % (0.0-5.0); HEMOGLOBIN. 8.5 g/dL (14.0-18.0); LYMPHOCYTES % 7.5 % (20.0-50.0); MEAN CORPUSCULAR HEMOGLOBIN 28.5 pg (28.0-32.0); MEAN CORPUSCULAR VOLUME 86.8 fL (80.0-94.0); MEAN PLATELET VOLUME 9.7 fl (7.4-10.4); NEUTROPHILS % 78.6 % (40.0-76.0); PLATELET 360 x1000/uL (130-400); RED BLOOD CELL COUNT 2.99 mill/uL (4.7-6.1); RED CELL DISTRIBUTION WIDTH 17.5 % (11.6-14.6)
[2019-09-24 07:57] LABS: PHOSPHORUS 4.1 mg/dL (2.5-4.9)
[2019-09-24] MEDS: AMLODIPINE 10MG TABLET PO SCH (08:32)
[2019-09-24] MEDS: LORATADINE 10MG TABLET PO SCH (08:32)
[2019-09-24] MEDS: ASPIRIN 81MG TABLET PO SCH (08:33)
[2019-09-24] MEDS: TAMSULOSIN HCL 0.4MG SR CAPSULE PO SCH (08:33)
[2019-09-24] MEDS: INSULIN LISPRO 100 UNITS/ML SUBCUT SCH ×4 (08:38→21:00)
[2019-09-24 09:54] LABS: BG BASE EXCESS 0.1 mmol/L (-2.0-2.0); BG CARBOXYHEMOGLOBIN 0.3 % (0.5-1.5); BG DEOXYHEMOGLOBIN 8.1 % (0.0-5.0); BG FRACTION INSPIRED OXYGEN 21; BG HCO3 ACT 22.5 mmol/L (22.0-26.0); BG METHEMOGLOBIN 0.5 % (0.0-1.5); BG OXYGEN SATURATION 91.8 % (92.0-98.5); BG OXYHEMOGLOBIN 91.1 % (94.0-97.0); BG PCO2 28.4 mmHg (35.0-45.0); BG PH 7.517 (7.350-7.450); BG PO2 62.6 mmHg (75.0-100.0); BG SAMPLE SITE RIGHT BRACHIAL; BG VENT MODE ROOM AIR
[2019-09-24] MEDS ORDERED: AZITHROMYCIN 500 MG TABLET PO SCH (11:30)
[2019-09-24] MEDS ORDERED: CEFTRIAXONE 1 G PREMIX 50 ML IV SCH (13:00)
[2019-09-24] MEDS: CEFTRIAXONE 1,000 MG in DEXTROSE 5% WATER 50 ML IV SCH (13:47)
[2019-09-24] MEDS: MONTELUKAST SODIUM 10MG TABLET PO SCH (16:11)
[2019-09-24 17:04] LABS: HEPATITIS B SURFACE AB 51.9 mIU/mL
[2019-09-24 17:14] LABS: HEPATITIS B SURFACE ANTIGEN NEGATIVE
[2019-09-24 17:44] LABS: HEPATITIS A AB IGM NEGATIVE (NEGATIVE)
[2019-09-24] MEDS: DOXYCYCLINE 100 MG in DEXT 5% WATER 100 ML IV SCH (20:55)
[2019-09-25] VITALS (12 sets, daily range): BP systolic 97–132; BP diastolic 43–63
[2019-09-25] MEDS: HYDRALAZINE HCL 100MG TABLET PO SCH ×3 (06:07→21:25)
[2019-09-25] MEDS: BLOOD SUGAR DIAGNOSTIC STRIP TEST SCH ×4 (06:07→21:00)
[2019-09-25] MEDS: INSULIN LISPRO 100 UNITS/ML SUBCUT SCH ×4 (06:28→21:24)
[2019-09-25 07:20] LABS: BASOPHILS % 0.4 % (0.0-2.0); EOSINOPHILS % 1.1 % (0.0-5.0); HEMATOCRIT. 26.1 % (42.0-52.0); HEMOGLOBIN. 8.6 g/dL (14.0-18.0); LYMPHOCYTES % 9.4 % (20.0-50.0); MEAN CORPUSCULAR HEMOGLOBIN 28.9 pg (28.0-32.0); MEAN CORPUSCULAR VOLUME 87.3 fL (80.0-94.0); MEAN PLATELET VOLUME 9.7 fl (7.4-10.4); MONOCYTES % 13.6 % (2.0-8.0); NEUTROPHILS % 75.5 % (40.0-76.0); PLATELET 328 x1000/uL (130-400); RED BLOOD CELL COUNT 2.99 mill/uL (4.7-6.1); RED CELL DISTRIBUTION WIDTH 17.8 % (11.6-14.6)
[2019-09-25] MEDS: DOXYCYCLINE 100 MG in DEXT 5% WATER 100 ML IV SCH (07:32)
[2019-09-25 07:46] LABS: CHLORIDE 102 mEq/L (98-107)
[2019-09-25 07:54] LABS: PHOSPHORUS 3.3 mg/dL (2.5-4.9)
[2019-09-25] MEDS: AMLODIPINE 10MG TABLET PO SCH (08:52)
[2019-09-25] MEDS: LORATADINE 10MG TABLET PO SCH (08:53)
[2019-09-25] MEDS: ASPIRIN 81MG TABLET PO SCH (08:53)
[2019-09-25] MEDS: TAMSULOSIN HCL 0.4MG SR CAPSULE PO SCH (08:53)
[2019-09-25] MEDS: CEFTRIAXONE 1,000 MG in DEXTROSE 5% WATER 50 ML IV SCH (12:11)
[2019-09-25] MEDS: MONTELUKAST SODIUM 10MG TABLET PO SCH (17:23)
[2019-09-25] MEDS: DOXYCYCLINE HYCLATE 100MG CAPSULE PO SCH (21:25)
[2019-09-26] VITALS (24 sets, daily range): BP systolic 107–147; BP diastolic 44–71
[2019-09-26] MEDS: BLOOD SUGAR DIAGNOSTIC STRIP TEST SCH ×4 (06:13→21:31)
[2019-09-26] MEDS: HYDRALAZINE HCL 100MG TABLET PO SCH ×3 (06:14→21:30)
[2019-09-26 06:17] LABS: BASOPHILS % 0.5 % (0.0-2.0); EOSINOPHILS % 2.5 % (0.0-5.0); HEMATOCRIT. 25.8 % (42.0-52.0); HEMOGLOBIN. 8.5 g/dL (14.0-18.0); LYMPHOCYTES % 9.2 % (20.0-50.0); MEAN CORPUSCULAR VOLUME 87.7 fL (80.0-94.0); MEAN PLATELET VOLUME 9.5 fl (7.4-10.4); MONOCYTES % 12.6 % (2.0-8.0); NEUTROPHILS % 75.2 % (40.0-76.0); PLATELET 300 x1000/uL (130-400); RED BLOOD CELL COUNT 2.94 mill/uL (4.7-6.1)
[2019-09-26 06:37] LABS: PHOSPHORUS 3.9 mg/dL (2.5-4.9)
[2019-09-26] MEDS: INSULIN LISPRO 100 UNITS/ML SUBCUT SCH ×4 (07:20→21:00)
[2019-09-26] MEDS: DOXYCYCLINE HYCLATE 100MG CAPSULE PO SCH ×2 (07:43→19:39)
[2019-09-26] MEDS ORDERED: LIDOCAINE HCL 1% 20ML VIAL (Pyxis) INJ ONE (08:09)
[2019-09-26] MEDS ORDERED: SODIUM BICARBONATE 4% (2.4MEQ) 5ML VIAL IV ONE (08:09)
[2019-09-26] MEDS ORDERED: FENTANYL CITRATE/PF 50MCG/ML 2ML VIAL ONE (08:21)
[2019-09-26] MEDS ORDERED: FENTANYL CITRATE/PF 50MCG/ML 2ML VIAL IV SCH (08:30)
[2019-09-26] MEDS: AMLODIPINE 10MG TABLET PO SCH (09:00)
[2019-09-26] MEDS: LORATADINE 10MG TABLET PO SCH (09:00)
[2019-09-26] MEDS: ASPIRIN 81MG TABLET PO SCH (09:00)
[2019-09-26] MEDS: TAMSULOSIN HCL 0.4MG SR CAPSULE PO SCH (09:00)
[2019-09-26] MEDS ORDERED: CEFTRIAXONE 1 G PREMIX 50 ML IV SCH (13:00)
[2019-09-26] MEDS: MONTELUKAST SODIUM 10MG TABLET PO SCH (17:42)
[2019-09-27] VITALS (8 sets, daily range): BP systolic 112–137; BP diastolic 52–65
[2019-09-27] MEDS: HYDRALAZINE HCL 100MG TABLET PO SCH (06:01)
[2019-09-27] MEDS: BLOOD SUGAR DIAGNOSTIC STRIP TEST SCH ×2 (06:01→12:32)
[2019-09-27] MEDS: DOXYCYCLINE HYCLATE 100MG CAPSULE PO SCH (07:09)
[2019-09-27] MEDS: INSULIN LISPRO 100 UNITS/ML SUBCUT SCH ×2 (07:20→12:40)
[2019-09-27] MEDS: TAMSULOSIN HCL 0.4MG SR CAPSULE PO SCH (07:59)
[2019-09-27] MEDS: AMLODIPINE 10MG TABLET PO SCH (07:59)
[2019-09-27] MEDS: ASPIRIN 81MG TABLET PO SCH (07:59)
[2019-09-27] MEDS: LORATADINE 10MG TABLET PO SCH (07:59)
[2019-09-27] MEDS ORDERED: HYDR100T26 MT (11:15)
[2019-09-27] MEDS ORDERED: AMLO10TA80 MT (11:15)
== END 2019-09-27 15:00 | disposition home or self-care (01) | DRG 673 ==
LOC: ER 16:12 → 3WST 21:35 → EDBEDREQSVC 21:48 → EDBEDREQTM 21:48 → EDBEDREQ 21:48 → ENRESERV 23:00
PROVIDERS: ADMIT Internal Medicine; ATTEND Internal Medicine
PROC: 5A1D70Z Performance of Urinary Filtration, Intermittent, Less than 6 Hours Per Day (ICD-10-PCS; principal; 2019-09-23)
PROC: 02H633Z Insertion of Infusion Device into Right Atrium, Percutaneous Approach (ICD-10-PCS; 2019-09-23)
PROC: B548ZZA Ultrasonography of Superior Vena Cava, Guidance (ICD-10-PCS; 2019-09-23)
PROC: 5A1D70Z Performance of Urinary Filtration, Intermittent, Less than 6 Hours Per Day (ICD-10-PCS; 2019-09-24)
PROC: 5A1D70Z Performance of Urinary Filtration, Intermittent, Less than 6 Hours Per Day (ICD-10-PCS; 2019-09-26)
PROC: 02PAX3Z Removal of Infusion Device from Heart, External Approach (ICD-10-PCS; 2019-09-26)
PROC: 02HV33Z Insertion of Infusion Device into Superior Vena Cava, Percutaneous Approach (ICD-10-PCS; 2019-09-26)
PROC: 0JH63XZ Insertion of Tunneled Vascular Access Device into Chest Subcutaneous Tissue and Fascia, Percutaneous Approach (ICD-10-PCS; 2019-09-26)
PROC: B518ZZA Fluoroscopy of Superior Vena Cava, Guidance (ICD-10-PCS; 2019-09-26)
PROC: 5A1D70Z Performance of Urinary Filtration, Intermittent, Less than 6 Hours Per Day (ICD-10-PCS; 2019-09-27)
DX: N17.9 Acute kidney failure, unspecified (principal); J96.00 Acute respiratory failure, unspecified whether with hypoxia or hypercapnia; I21.4 Non-ST elevation (NSTEMI) myocardial infarction; J18.9 Pneumonia, unspecified organism; I13.2 Hypertensive heart and chronic kidney disease with heart failure and with stage 5 chronic kidney disease, or end stage renal disease; E87.1 Hypo-osmolality and hyponatremia; J44.0 Chronic obstructive pulmonary disease with (acute) lower respiratory infection; I31.3 Pericardial effusion (noninflammatory); I50.30 Unspecified diastolic (congestive) heart failure; I42.9 Cardiomyopathy, unspecified; N18.6 End stage renal disease; Z20.828 Contact with and (suspected) exposure to other viral communicable diseases; I44.0 Atrioventricular block, first degree; D72.810 Lymphocytopenia; N40.0 Benign prostatic hyperplasia without lower urinary tract symptoms; I50.9 Heart failure, unspecified; D64.9 Anemia, unspecified; E11.22 Type 2 diabetes mellitus with diabetic chronic kidney disease; I44.30 Unspecified atrioventricular block; Z99.2 Dependence on renal dialysis; Z87.01 Personal history of pneumonia (recurrent); Z79.899 Other long term (current) drug therapy; Z87.891 Personal history of nicotine dependence
CPT/HCPCS: 36415; 36558; 36589; 36600; 71045; 76937; 77001; 80048; 80053; 81003; 82375; 82805; 82962; 83735; 83880; 84100; 84145; 84484; 85025; 86705; 86706; 86709; 86803; 87340; 87635; 93005; 99152; 99153; 99285; C1750; C1752; C1769; J0610; J0696; J1642; J1644; J1815; J1940; J3010; J3490; J7060; G0500

== ENCOUNTER 2020-12-10 20:21 | Inpatient (IN) | payer BC, MEDICARE ==
[~2020-12-10] VITALS: Ht 182.9 cm; Wt 84.8 kg
[~2020-12-10 20:21] MED LIST changes: -MONT10TA26 PO; +MONT10TA32 PO; -TRIA50CA2 PO
[2020-12-11] MEDS ORDERED: ONDANSETRON 4MG ODT PO PRN (01:00)
[2020-12-11 01:25] LABS: HEMATOCRIT. 24.1 % (42.0-52.0); HEMOGLOBIN. 7.9 g/dL (14.0-18.0); MEAN CORPUSCULAR HEMOGLOBIN 31.4 pg (28.0-32.0); MEAN CORPUSCULAR VOLUME 95.8 fL (80.0-94.0); PLATELET 134 x1000/uL (130-400); RED BLOOD CELL COUNT 2.51 mill/uL (4.7-6.1); RED CELL DISTRIBUTION WIDTH 15.6 % (11.6-14.6)
[2020-12-11] MEDS ORDERED: CALCIUM GLUCONATE 100MG/ML 10ML VIAL IV ONE (07:15)
[2020-12-11] MEDS ORDERED: ASPIRIN 81MG TABLET PO ONE (07:15)
[2020-12-11] MEDS ORDERED: INSULIN REGULAR (HUMULIN R) 300UNITS/3ML VIAL IV ONE (07:15)
[2020-12-11] MEDS ORDERED: DEXTROSE 50% WATER 50ML SYRINGE IV ONE (07:15)
[2020-12-11] MEDS ORDERED: ALBUTEROL (0.083%) 2.5MG/3ML NEB HHN ONE (07:30)
[2020-12-11 07:37] LABS: PLATELET ESTIMATE NORMAL
[2020-12-11 11:12] VITALS: BP 128/66
[2020-12-11 12:55] LABS: BG BASE EXCESS -5.4 mmol/L (-2.0-2.0); BG CARBOXYHEMOGLOBIN 0.3 % (0.5-1.5); BG DEOXYHEMOGLOBIN 4.3 % (0.0-5.0); BG HCO3 ACT 18.9 mmol/L (22.0-26.0); BG METHEMOGLOBIN 0.1 % (0.0-1.5); BG OXYGEN SATURATION 95.7 % (92.0-98.5); BG OXYHEMOGLOBIN 95.3 % (94.0-97.0); BG PCO2 31.6 mmHg (35.0-45.0); BG PH 7.394 (7.350-7.450); BG PO2 89.6 mmHg (75.0-100.0); BG VENT MODE ROOM AIR
[2020-12-11 13:18] LABS: CHLORIDE 95 mEq/L (98-107)
[2020-12-11 13:27] LABS: TOTAL IRON BINDING CAPACITY 313 ug/dL (250-450)
[2020-12-11 13:28] LABS: CREATINE KINASE 199 IU/L (39-308); CREATINE KINASE MB FRACTION 6.9 ng/mL (0.5-3.6)
[2020-12-11 13:29] LABS: LDL CHOLESTEROL 43 mg/dL (5-100)
[2020-12-11 13:32] LABS: HDL CHOLESTEROL 57 mg/dL (40-59)
[2020-12-11 13:34] LABS: T4 FREE 1.05 ng/dL (0.76-1.46)
[2020-12-11] MEDS ORDERED: CLONIDINE 0.1MG TABLET PO PRN (13:45)
[2020-12-11] MEDS ORDERED: HEPARIN 5000 UNITS/ML VIAL SUBCUT NR (15:00)
[2020-12-11] MEDS: AMLODIPINE 2.5MG TABLET PO SCH ×2 (15:18→20:33)
[2020-12-11] MEDS: NITROGLYCERIN OINT 1GM/INCH UDPKT TD SCH ×3 (15:18→23:00)
[2020-12-11 16:00] VITALS: BP 125/61
[2020-12-11] MEDS ORDERED: CALCIUM CHLORIDE 1GM/10ML SYR IV NR (16:30)
[2020-12-11] MEDS ORDERED: DEXTROSE 50% WATER 50ML SYRINGE IV NR (16:30)
[2020-12-11] MEDS ORDERED: SODIUM POLYSTYRENE SULFONATE 15 G/60 ML BOT PO NR (16:30)
[2020-12-11] MEDS ORDERED: SODIUM BICARBONATE 8.4% 1 MEQ/ML 50ML SYR IV NR (16:30)
[2020-12-11] MEDS ORDERED: INSULIN REGULAR (HUMULIN R) UD 100 UNITS/ML SYR IV NR (16:30)
[2020-12-11] MEDS ORDERED: HEPARIN 5000 UNITS/ML VIAL SUBCUT SCH (17:00)
[2020-12-11] MEDS ORDERED: TEMAZEPAM 15MG CAPSULE PO PRN (17:30)
[2020-12-11] MEDS ORDERED: DEXTROSE 50% WATER 50ML SYRINGE IV PRN (17:30)
[2020-12-11] MEDS ORDERED: LORAZEPAM 2MG/ML CPJ IV PRN (17:30)
[2020-12-11] MEDS ORDERED: HYDROCODONE/ACETAMINOPHEN 5/325MG TABLET PO PRN (17:30)
[2020-12-11] MEDS ORDERED: BISACODYL 10MG SUPP PR PRN (17:30)
[2020-12-11] MEDS ORDERED: IPRATROPIUM/ALBUTEROL 0.5-3(2.5)MG/3ML NEB HHN PRN (17:30)
[2020-12-11 18:26] LABS: BASOPHILS % 0.1 % (0.0-2.0); HEMATOCRIT. 21.5 % (42.0-52.0); HEMOGLOBIN. 7.2 g/dL (14.0-18.0); LYMPHOCYTES % 7.1 % (20.0-50.0); MEAN CORPUSCULAR HEMOGLOBIN 32.1 pg (28.0-32.0); MEAN CORPUSCULAR VOLUME 95.7 fL (80.0-94.0); MEAN PLATELET VOLUME 11.4 fl (7.4-10.4); NEUTROPHILS % 83.8 % (40.0-76.0); PLATELET 111 x1000/uL (130-400); RED BLOOD CELL COUNT 2.24 mill/uL (4.7-6.1); RED CELL DISTRIBUTION WIDTH 15.6 % (11.6-14.6)
[2020-12-11 19:00] LABS: VITAMIN B12 SERUM 1526 pg/mL (211-911)
[2020-12-11] MEDS: PIPERACILLIN/TAZOBACTAM 2.25 G in DEXTROSE 5% WATER 50 ML IV SCH (19:52)
[2020-12-11 20:00] VITALS: BP 109/46
[2020-12-11] MEDS: INSULIN LISPRO 100 UNITS/ML SUBCUT SCH (20:33)
[2020-12-11] MEDS: BLOOD SUGAR DIAGNOSTIC STRIP TEST SCH (20:33)
[2020-12-11] MEDS ORDERED: EPOETIN ALFA-EPBX 10,000 UNIT/ML VIAL SUBCUT NR (21:00)
[2020-12-11 22:00] VITALS: BP 105/50
[2020-12-12] VITALS (21 sets, daily range): BP systolic 90–149; BP diastolic 36–85
[2020-12-12] MEDS: NITROGLYCERIN OINT 1GM/INCH UDPKT TD SCH ×6 (03:00→22:56)
[2020-12-12] MEDS: PIPERACILLIN/TAZOBACTAM 2.25 G in DEXTROSE 5% WATER 50 ML IV SCH ×3 (03:17→21:30)
[2020-12-12] MEDS: BLOOD SUGAR DIAGNOSTIC STRIP TEST SCH ×4 (06:37→21:32)
[2020-12-12 06:50] LABS: BASOPHILS % 0.4 % (0.0-2.0); EOSINOPHILS % 0.5 % (0.0-5.0); HEMATOCRIT. 22.7 % (42.0-52.0); HEMOGLOBIN. 7.8 g/dL (14.0-18.0); LYMPHOCYTES % 7.1 % (20.0-50.0); MEAN CORPUSCULAR HEMOGLOBIN 32.1 pg (28.0-32.0); MEAN CORPUSCULAR VOLUME 93.8 fL (80.0-94.0); MEAN PLATELET VOLUME 11.1 fl (7.4-10.4); MONOCYTES % 10.8 % (2.0-8.0); NEUTROPHILS % 81.2 % (40.0-76.0); PLATELET 106 x1000/uL (130-400); RED BLOOD CELL COUNT 2.42 mill/uL (4.7-6.1); RED CELL DISTRIBUTION WIDTH 15.6 % (11.6-14.6)
[2020-12-12 07:05] LABS: PHOSPHORUS 6.6 mg/dL (2.5-4.9)
[2020-12-12 07:11] LABS: CREATINE KINASE MB FRACTION 4.2 ng/mL (0.5-3.6)
[2020-12-12] MEDS: INSULIN LISPRO 100 UNITS/ML SUBCUT SCH ×4 (07:20→21:32)
[2020-12-12] MEDS: AMLODIPINE 2.5MG TABLET PO SCH ×2 (09:00→17:00)
[2020-12-12] MEDS: FOLIC ACID/VITAMIN B COMP W-C TABLET PO SCH (09:00)
[2020-12-12] MEDS: SEVELAMER CARBONATE 800 MG TABLET PO SCH ×3 (10:16→17:48)
[2020-12-12] MEDS: ASPIRIN 81MG TABLET PO SCH (10:16)
[2020-12-12 13:26] LABS: INR 1.4; PARTIAL THROMBOPLASTIN TIME 27.6 sec (23.4-31.0); PROTHROMBIN TIME 14.2 sec (9.6-11.0)
[2020-12-12] MEDS ORDERED: NALOXONE HCL 0.4MG/ML VIAL IV PRN (17:30)
[2020-12-13] VITALS (12 sets, daily range): BP systolic 96–139; BP diastolic 45–79
[2020-12-13] LABS: HEMATOCRIT 24.5 % (42.0-52.0); HEMOGLOBIN 8.3 g/dL (14.0-18.0)
[2020-12-13] MEDS: PIPERACILLIN/TAZOBACTAM 2.25 G in DEXTROSE 5% WATER 50 ML IV SCH ×3 (02:51→18:38)
[2020-12-13] MEDS: NITROGLYCERIN OINT 1GM/INCH UDPKT TD SCH ×6 (03:09→23:00)
[2020-12-13 06:05] LABS: BASOPHILS % 0.5 % (0.0-2.0); EOSINOPHILS % 1.2 % (0.0-5.0); HEMOGLOBIN. 8.5 g/dL (14.0-18.0); LYMPHOCYTES % 10.3 % (20.0-50.0); MEAN CORPUSCULAR VOLUME 94.8 fL (80.0-94.0); MEAN PLATELET VOLUME 11.3 fl (7.4-10.4); MONOCYTES % 14.2 % (2.0-8.0); NEUTROPHILS % 73.8 % (40.0-76.0); PLATELET 107 x1000/uL (130-400); RED BLOOD CELL COUNT 2.74 mill/uL (4.7-6.1); RED CELL DISTRIBUTION WIDTH 15.2 % (11.6-14.6)
[2020-12-13 06:27] LABS: CHLORIDE 92 mEq/L (98-107)
[2020-12-13] MEDS: BLOOD SUGAR DIAGNOSTIC STRIP TEST SCH ×4 (06:43→20:36)
[2020-12-13 06:51] LABS: INR 1.3; PROTHROMBIN TIME 13.7 sec (9.6-11.0)
[2020-12-13] MEDS: INSULIN LISPRO 100 UNITS/ML SUBCUT SCH ×4 (07:20→20:36)
[2020-12-13] MEDS: SEVELAMER CARBONATE 800 MG TABLET PO SCH ×3 (07:20→17:20)
[2020-12-13] MEDS: FOLIC ACID/VITAMIN B COMP W-C TABLET PO SCH (09:00)
[2020-12-13] MEDS: ASPIRIN 81MG TABLET PO SCH (09:00)
[2020-12-13] MEDS: AMLODIPINE 2.5MG TABLET PO SCH ×2 (09:00→17:00)
[2020-12-13] MEDS: PANTOPRAZOLE SODIUM 40 MG/VIAL IV SCH (09:16)
[2020-12-13] MEDS ORDERED: PROPOFOL 200MG/20ML VIAL IV ONE (13:08)
[2020-12-13] MEDS ORDERED: HYDROMORPHONE HCL/PF 2MG/ML CPJ IV PRN (13:30)
[2020-12-13] MEDS ORDERED: ONDANSETRON HCL 4MG/2ML INJ IV PRN (13:30)
[2020-12-13] MEDS ORDERED: LABETALOL 5MG/ML SYR 20 MG/4 ML SYRINGE IV PRN (13:30)
[2020-12-13] MEDS ORDERED: MEPERIDINE HCL/PF 25MG/ML CPJ IV PRN (13:30)
[2020-12-13] MEDS: SUCRALFATE 1G TABLET PO SCH ×2 (16:54→20:33)
[2020-12-14] VITALS (15 sets, daily range): BP systolic 99–145; BP diastolic 45–65
[2020-12-14] MEDS: NITROGLYCERIN OINT 1GM/INCH UDPKT TD SCH ×6 (03:00→23:00)
[2020-12-14] MEDS: PIPERACILLIN/TAZOBACTAM 2.25 G in DEXTROSE 5% WATER 50 ML IV SCH ×3 (03:29→19:34)
[2020-12-14 05:09] LABS: HAV IGM ANTIBODY Negative (Negative); HBSAG SCREEN Negative (Negative); HEPATITIS B CORE IGM AB Negative (Negative); HEPATITIS C AB <0.1 s/co ratio (0.0-0.9)
[2020-12-14] MEDS: SUCRALFATE 1G TABLET PO SCH ×4 (06:31→20:44)
[2020-12-14] MEDS: BLOOD SUGAR DIAGNOSTIC STRIP TEST SCH ×4 (06:37→20:45)
[2020-12-14] MEDS: SEVELAMER CARBONATE 800 MG TABLET PO SCH ×3 (07:20→16:35)
[2020-12-14] MEDS: INSULIN LISPRO 100 UNITS/ML SUBCUT SCH ×4 (07:20→20:45)
[2020-12-14 07:36] LABS: BASOPHILS % 0.6 % (0.0-2.0); EOSINOPHILS % 1.4 % (0.0-5.0); HEMATOCRIT. 26.3 % (42.0-52.0); HEMOGLOBIN. 8.8 g/dL (14.0-18.0); LYMPHOCYTES % 10.3 % (20.0-50.0); MEAN CORPUSCULAR HEMOGLOBIN 31.8 pg (28.0-32.0); MEAN CORPUSCULAR VOLUME 95.5 fL (80.0-94.0); MONOCYTES % 13.5 % (2.0-8.0); NEUTROPHILS % 74.2 % (40.0-76.0); PLATELET 120 x1000/uL (130-400); RED BLOOD CELL COUNT 2.76 mill/uL (4.7-6.1); RED CELL DISTRIBUTION WIDTH 15.4 % (11.6-14.6)
[2020-12-14] MEDS ORDERED: NITROGLYCERIN 50MCG/ML 10ML VIAL (CATH LAB) IV ONE (07:44)
[2020-12-14] MEDS ORDERED: HEPARIN SODIUM 1,000 UNIT/1ML VIAL IV ONE (07:44)
[2020-12-14] MEDS ORDERED: NICARDIPINE 100MCG/ML 10ML VIAL (CATH LAB) IV ONE (07:44)
[2020-12-14] MEDS: FOLIC ACID/VITAMIN B COMP W-C TABLET PO SCH (08:18)
[2020-12-14] MEDS: AMLODIPINE 2.5MG TABLET PO SCH ×2 (08:20→16:34)
[2020-12-14] MEDS: PANTOPRAZOLE SODIUM 40 MG/VIAL IV SCH (08:25)
[2020-12-14] MEDS ORDERED: LIDOCAINE HCL 1% 20ML VIAL (Pyxis) INJ ONE ×2 (10:21→10:26)
[2020-12-14] MEDS ORDERED: IODIXANOL 320MG/ML 100 ML BOTTLE IV ONE (10:22)
[2020-12-14] MEDS ORDERED: IOHEXOL-300 100 ML BOTTLE ONE (10:22)
[2020-12-14] MEDS ORDERED: FENTANYL CITRATE/PF 50MCG/ML 2ML VIAL ONE (10:25)
[2020-12-14] MEDS ORDERED: MIDAZOLAM HCL 2 MG/2 ML VIAL ONE (10:25)
[2020-12-14] MEDS ORDERED: MORPHINE SULFATE 2 MG/ML CPJ (NOT FOR IM USE) IV PRN (11:00)
[2020-12-14] MEDS ORDERED: ONDANSETRON HCL 4MG/2ML INJ IV PRN (11:00)
[2020-12-14] MEDS ORDERED: ACETAMINOPHEN 325MG TABLET PO PRN (11:00)
[2020-12-14] MEDS ORDERED: ATROPINE SULFATE 1MG/10ML SYR IV PRN (11:00)
[2020-12-15] VITALS (12 sets, daily range): BP systolic 96–144; BP diastolic 46–78
[2020-12-15] MEDS: NITROGLYCERIN OINT 1GM/INCH UDPKT TD SCH ×5 (03:00→21:27)
[2020-12-15] MEDS: PIPERACILLIN/TAZOBACTAM 2.25 G in DEXTROSE 5% WATER 50 ML IV SCH ×2 (03:00→11:19)
[2020-12-15] MEDS: BLOOD SUGAR DIAGNOSTIC STRIP TEST SCH ×4 (06:33→21:54)
[2020-12-15] MEDS: SUCRALFATE 1G TABLET PO SCH ×4 (06:34→21:27)
[2020-12-15] MEDS: INSULIN LISPRO 100 UNITS/ML SUBCUT SCH ×4 (07:20→22:15)
[2020-12-15] MEDS: FOLIC ACID/VITAMIN B COMP W-C TABLET PO SCH (08:23)
[2020-12-15] MEDS: PANTOPRAZOLE SODIUM 40 MG/VIAL IV SCH (08:23)
[2020-12-15] MEDS: SEVELAMER CARBONATE 800 MG TABLET PO SCH ×3 (08:23→16:49)
[2020-12-15] MEDS: AMLODIPINE 2.5MG TABLET PO SCH ×2 (08:24→16:49)
[2020-12-15 09:45] LABS: BASOPHILS % 0.7 % (0.0-2.0); EOSINOPHILS % 1.4 % (0.0-5.0); HEMATOCRIT. 26.7 % (42.0-52.0); LYMPHOCYTES % 8.4 % (20.0-50.0); MEAN CORPUSCULAR HEMOGLOBIN 32.6 pg (28.0-32.0); MEAN CORPUSCULAR VOLUME 96.7 fL (80.0-94.0); MEAN PLATELET VOLUME 10.7 fl (7.4-10.4); MONOCYTES % 10.7 % (2.0-8.0); NEUTROPHILS % 78.8 % (40.0-76.0); PLATELET 136 x1000/uL (130-400); RED BLOOD CELL COUNT 2.76 mill/uL (4.7-6.1); RED CELL DISTRIBUTION WIDTH 15.6 % (11.6-14.6)
[2020-12-16] VITALS (44 sets, daily range): BP systolic 40–189; BP diastolic 19–124
[2020-12-16] MEDS: NITROGLYCERIN OINT 1GM/INCH UDPKT TD SCH ×7 (00:21→23:03)
[2020-12-16 06:28] LABS: BASOPHILS % 0.6 % (0.0-2.0); EOSINOPHILS % 1.3 % (0.0-5.0); HEMATOCRIT. 25.2 % (42.0-52.0); HEMOGLOBIN. 8.4 g/dL (14.0-18.0); LYMPHOCYTES % 10.7 % (20.0-50.0); MEAN CORPUSCULAR VOLUME 95.7 fL (80.0-94.0); MEAN PLATELET VOLUME 10.7 fl (7.4-10.4); MONOCYTES % 12.1 % (2.0-8.0); NEUTROPHILS % 75.3 % (40.0-76.0); PLATELET 119 x1000/uL (130-400); RED BLOOD CELL COUNT 2.63 mill/uL (4.7-6.1); RED CELL DISTRIBUTION WIDTH 15.7 % (11.6-14.6)
[2020-12-16 06:43] LABS: PHOSPHORUS 4.7 mg/dL (2.5-4.9)
[2020-12-16] MEDS: SUCRALFATE 1G TABLET PO SCH ×4 (06:50→21:02)
[2020-12-16] MEDS: BLOOD SUGAR DIAGNOSTIC STRIP TEST SCH ×4 (06:50→20:33)
[2020-12-16] MEDS: SEVELAMER CARBONATE 800 MG TABLET PO SCH ×3 (07:20→18:13)
[2020-12-16] MEDS: INSULIN LISPRO 100 UNITS/ML SUBCUT SCH ×4 (07:20→20:33)
[2020-12-16] MEDS ORDERED: LIDOCAINE HCL 1% 20ML VIAL (Pyxis) INJ ONE ×3 (07:34→09:57)
[2020-12-16] MEDS ORDERED: GENTAMICIN SULF 40MG/ML 2ML VIAL ONE (08:42)
[2020-12-16] MEDS ORDERED: IODIXANOL 320MG/ML 100 ML BOTTLE IV ONE (08:43)
[2020-12-16] MEDS ORDERED: GENTAMICIN/NS IRRIGATION 500 ML IR ONE (08:43)
[2020-12-16] MEDS: PANTOPRAZOLE SODIUM 40 MG/VIAL IV SCH (08:58)
[2020-12-16] MEDS: FOLIC ACID/VITAMIN B COMP W-C TABLET PO SCH (08:59)
[2020-12-16] MEDS: AMLODIPINE 2.5MG TABLET PO SCH ×2 (08:59→18:14)
[2020-12-16] MEDS ORDERED: DOPAMINE 400MG/250ML PREMIX 250 ML IV ONE (09:52)
[2020-12-16] MEDS ORDERED: VASOPRESSIN 20 UNIT/ML 1ML IV SCH (10:45)
[2020-12-16] MEDS ORDERED: HYDROCODONE/ACETAMINOPHEN 5/325MG TABLET PO PRN (12:30)
[2020-12-16] MEDS ORDERED: FENTANYL CITRATE/PF 50MCG/ML 5ML VIAL ONE (12:47)
[2020-12-16] MEDS ORDERED: MIDAZOLAM HCL 5 MG/5 ML VIAL ONE (12:47)
[2020-12-16 14:02] LABS: BG BASE EXCESS -2.3 mmol/L (-2.0-2.0); BG CARBOXYHEMOGLOBIN 0.3 % (0.5-1.5); BG DEOXYHEMOGLOBIN 2.3 % (0.0-5.0); BG FRACTION INSPIRED OXYGEN 80; BG HCO3 ACT 23.7 mmol/L (22.0-26.0); BG METHEMOGLOBIN 0.2 % (0.0-1.5); BG OXYGEN SATURATION 97.7 % (92.0-98.5); BG OXYHEMOGLOBIN 97.2 % (94.0-97.0); BG PCO2 46.6 mmHg (35.0-45.0); BG PH 7.325 (7.350-7.450); BG PO2 112.6 mmHg (75.0-100.0); BG SAMPLE SITE LEFT FEMORAL; BG TOTAL HEMOGLOBIN 9.6 g/dL (12.0-18.0); BG TOTAL RESPIRATORY RATE 23 b/min; BG VENT MODE VENT - SIMV
[2020-12-16] MEDS ORDERED: PHENYLEPHRINE 100 MG in DEXT 5% WATER 240 ML IV PRN (14:15)
[2020-12-16 15:33] LABS: BG BASE EXCESS -2.6 mmol/L (-2.0-2.0); BG CARBOXYHEMOGLOBIN 0.3 % (0.5-1.5); BG DEOXYHEMOGLOBIN 1.4 % (0.0-5.0); BG FRACTION INSPIRED OXYGEN 80; BG HCO3 ACT 22.8 mmol/L (22.0-26.0); BG METHEMOGLOBIN 0.4 % (0.0-1.5); BG OXYGEN SATURATION 98.6 % (92.0-98.5); BG OXYHEMOGLOBIN 97.9 % (94.0-97.0); BG PCO2 41.7 mmHg (35.0-45.0); BG PH 7.355 (7.350-7.450); BG PO2 162.3 mmHg (75.0-100.0); BG SAMPLE SITE LEFT RADIAL; BG TOTAL RESPIRATORY RATE 21 b/min; BG VENT MODE VENT - SIMV
[2020-12-16] MEDS: PROPOFOL 10MG/ML 100ML 100 ML IV PRN ×3 (19:35→23:03)
[2020-12-17] VITALS (57 sets, daily range): BP systolic 35–169; BP diastolic 22–96
[2020-12-17] MEDS: NITROGLYCERIN OINT 1GM/INCH UDPKT TD SCH ×6 (03:37→23:00)
[2020-12-17] MEDS: PROPOFOL 10MG/ML 100ML 100 ML IV PRN (05:04)
[2020-12-17] MEDS: BLOOD SUGAR DIAGNOSTIC STRIP TEST SCH ×3 (07:41→23:45)
[2020-12-17] MEDS: INSULIN LISPRO 100 UNITS/ML SUBCUT SCH ×5 (07:41→23:45)
[2020-12-17] MEDS: SUCRALFATE 1G TABLET PO SCH ×4 (08:09→21:39)
[2020-12-17] MEDS: FOLIC ACID/VITAMIN B COMP W-C TABLET PO SCH (08:09)
[2020-12-17] MEDS: SEVELAMER CARBONATE 800 MG TABLET PO SCH ×3 (08:09→17:05)
[2020-12-17] MEDS: PANTOPRAZOLE SODIUM 40 MG/VIAL IV SCH ×2 (08:10→17:05)
[2020-12-17] MEDS: AMLODIPINE 2.5MG TABLET PO SCH ×2 (08:10→17:05)
[2020-12-17 09:06] LABS: BG BASE EXCESS 1.5 mmol/L (-2.0-2.0); BG DEOXYHEMOGLOBIN 1.2 % (0.0-5.0); BG FRACTION INSPIRED OXYGEN 40; BG HCO3 ACT 25.4 mmol/L (22.0-26.0); BG METHEMOGLOBIN 0.3 % (0.0-1.5); BG OXYGEN SATURATION 98.8 % (92.0-98.5); BG OXYHEMOGLOBIN 98.5 % (94.0-97.0); BG PCO2 37.2 mmHg (35.0-45.0); BG PH 7.452 (7.350-7.450); BG PO2 149.7 mmHg (75.0-100.0); BG SAMPLE SITE RIGHT BRACHIAL; BG TOTAL HEMOGLOBIN 9.2 g/dL (12.0-18.0); BG VENT MODE VENT - SIMV
[2020-12-17 10:15] LABS: BASOPHILS % 0.5 % (0.0-2.0); EOSINOPHILS % 0.3 % (0.0-5.0); HEMATOCRIT. 23.4 % (42.0-52.0); HEMOGLOBIN. 8.1 g/dL (14.0-18.0); LYMPHOCYTES % 8.4 % (20.0-50.0); MEAN CORPUSCULAR HEMOGLOBIN 33.5 pg (28.0-32.0); MEAN CORPUSCULAR VOLUME 96.3 fL (80.0-94.0); MEAN PLATELET VOLUME 9.8 fl (7.4-10.4); MONOCYTES % 11.1 % (2.0-8.0); NEUTROPHILS % 79.7 % (40.0-76.0); PLATELET 125 x1000/uL (130-400); RED BLOOD CELL COUNT 2.43 mill/uL (4.7-6.1); RED CELL DISTRIBUTION WIDTH 17.4 % (11.6-14.6)
[2020-12-17 12:12] LABS: BG BASE EXCESS 1.6 mmol/L (-2.0-2.0); BG CARBOXYHEMOGLOBIN 0.4 % (0.5-1.5); BG DEOXYHEMOGLOBIN 0.9 % (0.0-5.0); BG FRACTION INSPIRED OXYGEN 40; BG HCO3 ACT 25.3 mmol/L (22.0-26.0); BG METHEMOGLOBIN 0.4 % (0.0-1.5); BG OXYGEN SATURATION 99.1 % (92.0-98.5); BG OXYHEMOGLOBIN 98.3 % (94.0-97.0); BG PCO2 35.9 mmHg (35.0-45.0); BG PH 7.466 (7.350-7.450); BG PO2 165.2 mmHg (75.0-100.0); BG SAMPLE SITE RIGHT BRACHIAL; BG TOTAL HEMOGLOBIN 8.9 g/dL (12.0-18.0); BG VENT MODE VENT - CPAP
[2020-12-17] MEDS ORDERED: BLOOD SUGAR DIAGNOSTIC STRIP TEST SCH (17:00)
[2020-12-17] MEDS ORDERED: METHYLPREDNISOLONE SOD SUCC 40 MG/ML VIAL IV NR (17:00)
[2020-12-17] MEDS: METOCLOPRAMIDE HCL 10MG/2ML VIAL IV SCH ×2 (17:06→23:59)
[2020-12-17 17:41] LABS: HEMATOCRIT 23.7 % (42.0-52.0); HEMOGLOBIN 8.1 g/dL (14.0-18.0)
[2020-12-17 17:54] LABS: BG BASE EXCESS -0.6 mmol/L (-2.0-2.0); BG CARBOXYHEMOGLOBIN 0.2 % (0.5-1.5); BG DEOXYHEMOGLOBIN 0.7 % (0.0-5.0); BG FRACTION INSPIRED OXYGEN 40; BG HCO3 ACT 23.4 mmol/L (22.0-26.0); BG METHEMOGLOBIN 0.3 % (0.0-1.5); BG OXYGEN SATURATION 99.3 % (92.0-98.5); BG OXYHEMOGLOBIN 98.8 % (94.0-97.0); BG PCO2 36.2 mmHg (35.0-45.0); BG PH 7.429 (7.350-7.450); BG PO2 194.2 mmHg (75.0-100.0); BG SAMPLE SITE RIGHT BRACHIAL; BG TOTAL HEMOGLOBIN 10.7 g/dL (12.0-18.0); BG VENT MODE COOL AEROSOL
[2020-12-17] MEDS: IPRATROPIUM/ALBUTEROL 0.5-3(2.5)MG/3ML NEB HHN SCH (20:34)
[2020-12-17] MEDS: METHYLPREDNISOLONE SOD SUCC 40 MG/ML VIAL IV SCH (23:59)
[2020-12-18] VITALS (39 sets, daily range): BP systolic 46–143; BP diastolic 16–100
[2020-12-18] MEDS: ACETYLCYSTEINE 100MG/ML 10% VIAL 4ML INH SCH ×2 (00:28→09:15)
[2020-12-18] MEDS: IPRATROPIUM/ALBUTEROL 0.5-3(2.5)MG/3ML NEB HHN SCH ×4 (00:28→21:28)
[2020-12-18] MEDS: NITROGLYCERIN OINT 1GM/INCH UDPKT TD SCH ×7 (03:12→22:10)
[2020-12-18 05:34] LABS: BASOPHILS % 0.1 % (0.0-2.0); HEMATOCRIT. 29.5 % (42.0-52.0); HEMOGLOBIN. 9.5 g/dL (14.0-18.0); LYMPHOCYTES % 2.6 % (20.0-50.0); MEAN CORPUSCULAR HEMOGLOBIN 31.9 pg (28.0-32.0); MEAN CORPUSCULAR VOLUME 98.8 fL (80.0-94.0); MEAN PLATELET VOLUME 9.7 fl (7.4-10.4); MONOCYTES % 2.9 % (2.0-8.0); NEUTROPHILS % 94.4 % (40.0-76.0); PLATELET 161 x1000/uL (130-400); RED BLOOD CELL COUNT 2.99 mill/uL (4.7-6.1); RED CELL DISTRIBUTION WIDTH 18.5 % (11.6-14.6)
[2020-12-18 05:40] LABS: PHOSPHORUS 7.2 mg/dL (2.5-4.9)
[2020-12-18] MEDS: METHYLPREDNISOLONE SOD SUCC 40 MG/ML VIAL IV SCH ×3 (06:23→21:05)
[2020-12-18] MEDS: METOCLOPRAMIDE HCL 10MG/2ML VIAL IV SCH ×4 (06:23→23:51)
[2020-12-18] MEDS: BLOOD SUGAR DIAGNOSTIC STRIP TEST SCH ×4 (06:23→23:46)
[2020-12-18] MEDS: PANTOPRAZOLE SODIUM 40 MG/VIAL IV SCH ×2 (06:23→17:14)
[2020-12-18] MEDS: INSULIN LISPRO 100 UNITS/ML SUBCUT SCH ×4 (06:24→23:52)
[2020-12-18] MEDS: AMLODIPINE 2.5MG TABLET PO SCH ×2 (08:00→16:42)
[2020-12-18] MEDS: SEVELAMER CARBONATE 800 MG TABLET PO SCH ×3 (08:00→17:13)
[2020-12-18] MEDS: SUCRALFATE 1G TABLET PO SCH ×4 (08:00→21:05)
[2020-12-18] MEDS: FOLIC ACID/VITAMIN B COMP W-C TABLET PO SCH (08:00)
[2020-12-18] MEDS ORDERED: DEXT 5%/0.9% NACL 1,000 ML IV SCH (08:45)
[2020-12-18 10:13] LABS: BG BASE EXCESS -2.3 mmol/L (-2.0-2.0); BG CARBOXYHEMOGLOBIN 0.6 % (0.5-1.5); BG DEOXYHEMOGLOBIN 1.1 % (0.0-5.0); BG FRACTION INSPIRED OXYGEN 40; BG HCO3 ACT 22.2 mmol/L (22.0-26.0); BG METHEMOGLOBIN 0.3 % (0.0-1.5); BG OXYGEN SATURATION 98.9 % (92.0-98.5); BG PCO2 36.7 mmHg (35.0-45.0); BG PH 7.399 (7.350-7.450); BG PO2 136.3 mmHg (75.0-100.0); BG SAMPLE SITE RIGHT BRACHIAL; BG TOTAL HEMOGLOBIN 8.8 g/dL (12.0-18.0); BG VENT MODE COOL AEROSOL
[2020-12-18] MEDS ORDERED: SORBITOL 70% SOLN 30ML PO NR (10:45)
[2020-12-18 12:28] LABS: HEMOGLOBIN. 8.9 g/dL (14.0-18.0); MEAN CORPUSCULAR HEMOGLOBIN 32.4 pg (28.0-32.0); MEAN CORPUSCULAR VOLUME 102.1 fL (80.0-94.0); RED BLOOD CELL COUNT 2.74 mill/uL (4.7-6.1); RED CELL DISTRIBUTION WIDTH 18.4 % (11.6-14.6)
[2020-12-18 14:01] LABS: MEAN PLATELET VOLUME 10.3 fl (7.4-10.4); PLATELET 129 x1000/uL (130-400); PLATELET ESTIMATE NORMAL
[2020-12-19] VITALS (16 sets, daily range): BP systolic 90–134; BP diastolic 50–87
[2020-12-19] MEDS: ACETYLCYSTEINE 100MG/ML 10% VIAL 4ML INH SCH (00:50)
[2020-12-19] MEDS: IPRATROPIUM/ALBUTEROL 0.5-3(2.5)MG/3ML NEB HHN SCH ×2 (00:50→07:14)
[2020-12-19] MEDS: NITROGLYCERIN OINT 1GM/INCH UDPKT TD SCH ×4 (03:00→15:00)
[2020-12-19 06:35] LABS: HEMATOCRIT. 24.2 % (42.0-52.0); HEMOGLOBIN. 8.1 g/dL (14.0-18.0); MEAN CORPUSCULAR VOLUME 95.8 fL (80.0-94.0); RED BLOOD CELL COUNT 2.52 mill/uL (4.7-6.1); RED CELL DISTRIBUTION WIDTH 17.7 % (11.6-14.6)
[2020-12-19] MEDS: BLOOD SUGAR DIAGNOSTIC STRIP TEST SCH ×3 (06:41→17:22)
[2020-12-19] MEDS: SUCRALFATE 1G TABLET PO SCH ×3 (06:41→17:22)
[2020-12-19] MEDS: METOCLOPRAMIDE HCL 10MG/2ML VIAL IV SCH ×3 (06:42→17:22)
[2020-12-19] MEDS: METHYLPREDNISOLONE SOD SUCC 40 MG/ML VIAL IV SCH ×2 (06:42→14:07)
[2020-12-19] MEDS: PANTOPRAZOLE SODIUM 40 MG/VIAL IV SCH ×2 (06:42→17:22)
[2020-12-19] MEDS: INSULIN LISPRO 100 UNITS/ML SUBCUT SCH ×3 (06:54→17:21)
[2020-12-19] MEDS: SEVELAMER CARBONATE 800 MG TABLET PO SCH ×3 (07:43→17:22)
[2020-12-19] MEDS: FOLIC ACID/VITAMIN B COMP W-C TABLET PO SCH (08:19)
[2020-12-19] MEDS: AMLODIPINE 2.5MG TABLET PO SCH ×2 (08:19→17:00)
[2020-12-19 11:18] LABS: PLATELET ESTIMATE SLIGHTLY DECREASED
[2020-12-19 11:19] LABS: PLATELET 103 x1000/uL (130-400)
[2020-12-19] MEDS ORDERED: NALOXONE HCL 0.4MG/ML VIAL IV PRN (15:15)
[2020-12-19 16:06] LABS: BG BASE EXCESS 0.6 mmol/L (-2.0-2.0); BG CARBOXYHEMOGLOBIN 0.5 % (0.5-1.5); BG DEOXYHEMOGLOBIN 6.6 % (0.0-5.0); BG FRACTION INSPIRED OXYGEN 21; BG HCO3 ACT 24.3 mmol/L (22.0-26.0); BG METHEMOGLOBIN 0.1 % (0.0-1.5); BG OXYGEN SATURATION 93.4 % (92.0-98.5); BG OXYHEMOGLOBIN 92.8 % (94.0-97.0); BG PCO2 35.7 mmHg (35.0-45.0); BG PH 7.451 (7.350-7.450); BG PO2 70.8 mmHg (75.0-100.0); BG SAMPLE SITE RIGHT RADIAL; BG VENT MODE ROOM AIR
[2020-12-20] MEDS ORDERED: EPOETIN ALFA-EPBX 10,000 UNIT/ML VIAL SUBCUT SCH (21:00)
== END 2020-12-19 18:50 | disposition home or self-care (01) | DRG 222 ==
LOC: ER 20:21 → 8WST 12-11 02:29 → ENRESERV 12-11 07:37 → 3WST 12-11 15:37 → CVICU 12-16 12:45 → 3WST 12-18 16:32
PROVIDERS: ADMIT Internal Medicine; ATTEND Internal Medicine
PROC: 5A1D70Z Performance of Urinary Filtration, Intermittent, Less than 6 Hours Per Day (ICD-10-PCS; 2020-12-11)
PROC: 30233N1 Transfusion of Nonautologous Red Blood Cells into Peripheral Vein, Percutaneous Approach (ICD-10-PCS; principal; 2020-12-12)
PROC: 0DB78ZX Excision of Stomach, Pylorus, Via Natural or Artificial Opening Endoscopic, Diagnostic (ICD-10-PCS; 2020-12-13)
PROC: 5A1D70Z Performance of Urinary Filtration, Intermittent, Less than 6 Hours Per Day (ICD-10-PCS; 2020-12-13)
PROC: 4A023N7 Measurement of Cardiac Sampling and Pressure, Left Heart, Percutaneous Approach (ICD-10-PCS; 2020-12-14)
PROC: B2111ZZ Fluoroscopy of Multiple Coronary Arteries using Low Osmolar Contrast (ICD-10-PCS; 2020-12-14)
PROC: B2151ZZ Fluoroscopy of Left Heart using Low Osmolar Contrast (ICD-10-PCS; 2020-12-14)
PROC: 5A1D70Z Performance of Urinary Filtration, Intermittent, Less than 6 Hours Per Day (ICD-10-PCS; 2020-12-14)
PROC: 02HV33Z Insertion of Infusion Device into Superior Vena Cava, Percutaneous Approach (ICD-10-PCS; 2020-12-16)
PROC: B518ZZA Fluoroscopy of Superior Vena Cava, Guidance (ICD-10-PCS; 2020-12-16)
PROC: B548ZZA Ultrasonography of Superior Vena Cava, Guidance (ICD-10-PCS; 2020-12-16)
PROC: 5A1D70Z Performance of Urinary Filtration, Intermittent, Less than 6 Hours Per Day (ICD-10-PCS; 2020-12-16)
PROC: 5A1945Z Respiratory Ventilation, 24-96 Consecutive Hours (ICD-10-PCS; 2020-12-16)
PROC: 0BH17EZ Insertion of Endotracheal Airway into Trachea, Via Natural or Artificial Opening (ICD-10-PCS; 2020-12-16)
PROC: 0JH609Z Insertion of Cardiac Resynchronization Defibrillator Pulse Generator into Chest Subcutaneous Tissue and Fascia, Open Approach (ICD-10-PCS; 2020-12-16)
PROC: 02H43KZ Insertion of Defibrillator Lead into Coronary Vein, Percutaneous Approach (ICD-10-PCS; 2020-12-16)
PROC: 5A1D70Z Performance of Urinary Filtration, Intermittent, Less than 6 Hours Per Day (ICD-10-PCS; 2020-12-17)
PROC: 5A1D70Z Performance of Urinary Filtration, Intermittent, Less than 6 Hours Per Day (ICD-10-PCS; 2020-12-19)
DX: I21.4 Non-ST elevation (NSTEMI) myocardial infarction (principal); N18.6 End stage renal disease; K29.61 Other gastritis with bleeding; K29.81 Duodenitis with bleeding; J95.821 Acute postprocedural respiratory failure; I50.23 Acute on chronic systolic (congestive) heart failure; J44.1 Chronic obstructive pulmonary disease with (acute) exacerbation; I45.3 Trifascicular block; K56.7 Ileus, unspecified; I13.2 Hypertensive heart and chronic kidney disease with heart failure and with stage 5 chronic kidney disease, or end stage renal disease; Q25.49 Other congenital malformations of aorta; K22.2 Esophageal obstruction; K44.9 Diaphragmatic hernia without obstruction or gangrene; K52.9 Noninfective gastroenteritis and colitis, unspecified; D53.9 Nutritional anemia, unspecified; D69.6 Thrombocytopenia, unspecified; E11.22 Type 2 diabetes mellitus with diabetic chronic kidney disease; E78.5 Hyperlipidemia, unspecified; E87.5 Hyperkalemia; F10.10 Alcohol abuse, uncomplicated; I44.1 Atrioventricular block, second degree; N40.0 Benign prostatic hyperplasia without lower urinary tract symptoms; E11.51 Type 2 diabetes mellitus with diabetic peripheral angiopathy without gangrene; I25.10 Atherosclerotic heart disease of native coronary artery without angina pectoris; I27.20 Pulmonary hypertension, unspecified; I70.201 Unspecified atherosclerosis of native arteries of extremities, right leg; K29.80 Duodenitis without bleeding; Z20.822 Contact with and (suspected) exposure to COVID-19; R74.01 Elevation of levels of liver transaminase levels; E78.1 Pure hyperglyceridemia; I34.0 Nonrheumatic mitral (valve) insufficiency; I25.2 Old myocardial infarction; Z87.11 Personal history of peptic ulcer disease; Z99.2 Dependence on renal dialysis; Z79.899 Other long term (current) drug therapy; Z95.810 Presence of automatic (implantable) cardiac defibrillator; R91.1 Solitary pulmonary nodule; R06.03 Acute respiratory distress; I25.5 Ischemic cardiomyopathy
CPT/HCPCS: 33225; 33249; 36415; 36573; 36600; 71045; 71250; 74018; 74176; 75820; 76700; 78580; 80048; 80053; 80061; 80074; 80076; 82140; 82150; 82247; 82248; 82270; 82375; 82550; 82553; 82607; 82728; 82805; 82962; 83036; 83540; 83550; 83735; 83970; 84100; 84153; 84439; 84443; 84460; 84478; 84484; 85014; 85018; 85025; 85044; 85379; 86705; 86709; 86803; 86850; 86900; 86920; 87070; 87340; 87426; 88305; 88312; 88313; 92610; 93005; 93306; 93458; 93641; 93970; 94002; 94003; 94640; 97116; 97162; 99285; A4565; A6261; C1725; C1760; C1769; C1882; C1893; C1898; C1899; C1900; C9113; J0610; J0885; J1265; J1580; J1644; J1815; J2250; J2370; J2543; J2704; J2765; J2920; J3010; J3490; J7040; J7042; J7060; J7608; P9016; Q0162; Q9967; G0103

== ENCOUNTER 2021-01-20 09:26 | Emergency (ER) | payer BC ==
[~2021-01-20] VITALS: Ht 182.9 cm; Wt 90.0 kg
[2021-01-20 09:33] VITALS: BP 107/50
[2021-01-20 11:36] LABS: HEMATOCRIT. 30.1 % (42.0-52.0); HEMOGLOBIN. 10.2 g/dL (14.0-18.0); MEAN CORPUSCULAR HEMOGLOBIN 31.8 pg (28.0-32.0); MEAN CORPUSCULAR VOLUME 94.3 fL (80.0-94.0); MEAN PLATELET VOLUME 9.2 fl (7.4-10.4); PLATELET 198 x1000/uL (130-400); RED CELL DISTRIBUTION WIDTH 17.5 % (11.6-14.6)
[2021-01-20 12:08] LABS: CHLORIDE 97 mEq/L (98-107)
[2021-01-20 12:26] LABS: PLATELET ESTIMATE NORMAL
[2021-01-20] MEDS ORDERED: CLIN300C12 MT (12:52)
[2021-01-20] MEDS ORDERED: HYDR-4001 MT (12:54)
== END 2021-01-20 13:27 | disposition home or self-care (01) ==
LOC: ER 09:26
DX: E11.621 Type 2 diabetes mellitus with foot ulcer (principal); L97.529 Non-pressure chronic ulcer of other part of left foot with unspecified severity; I13.11 Hypertensive heart and chronic kidney disease without heart failure, with stage 5 chronic kidney disease, or end stage renal disease; E11.22 Type 2 diabetes mellitus with diabetic chronic kidney disease; D64.9 Anemia, unspecified; N18.6 End stage renal disease; Z95.0 Presence of cardiac pacemaker; Z99.2 Dependence on renal dialysis; Z87.01 Personal history of pneumonia (recurrent)
CPT/HCPCS: 36415; 73630; 80053; 85025; 86140; 99284

== ENCOUNTER 2021-02-09 11:32 | Inpatient (IN) | payer BC ==
[~2021-02-09] VITALS: Ht 182.9 cm; Wt 76.7 kg
[~2021-02-09 11:32] MED LIST changes: +CLIN300C12 MT; +HYDR-4001 MT
[2021-02-09] MEDS ORDERED: HYDROCODONE/ACETAMINOPHEN 5/325MG TABLET PO STA (12:36)
[2021-02-09 13:10] LABS: HEMATOCRIT. 30.5 % (42.0-52.0); HEMOGLOBIN. 10.1 g/dL (14.0-18.0); MEAN CORPUSCULAR HEMOGLOBIN 30.9 pg (28.0-32.0); MEAN CORPUSCULAR VOLUME 93.4 fL (80.0-94.0); MEAN PLATELET VOLUME 9.3 fl (7.4-10.4); PLATELET 201 x1000/uL (130-400); RED BLOOD CELL COUNT 3.26 mill/uL (4.7-6.1); RED CELL DISTRIBUTION WIDTH 17.3 % (11.6-14.6)
[2021-02-09 13:13] LABS: CHLORIDE 97 mEq/L (98-107)
[2021-02-09 13:57] LABS: PLATELET ESTIMATE NORMAL
[2021-02-09] MEDS ORDERED: CLONIDINE 0.1MG TABLET PO PRN ×2 (16:45→17:00)
[2021-02-09] MEDS ORDERED: IPRATROPIUM/ALBUTEROL 0.5-3(2.5)MG/3ML NEB NEB PRN (16:45)
[2021-02-09] MEDS ORDERED: ACETAMINOPHEN 325MG TABLET PO PRN ×2 (16:45→17:00)
[2021-02-09] MEDS ORDERED: DIPHENHYDRAMINE 50MG/ML VIAL IV PRN ×2 (16:45→17:00)
[2021-02-09] MEDS ORDERED: LORAZEPAM 0.5MG TABLET PO PRN (16:45)
[2021-02-09] MEDS ORDERED: MAGNESIUM/ALUMINUM HYDROXIDE/SIMETHICONE 30ML UDC PO PRN ×2 (16:45→17:00)
[2021-02-09] MEDS ORDERED: MORPHINE SULFATE 2 MG/ML CPJ (NOT FOR IM USE) IV PRN (16:45)
[2021-02-09] MEDS ORDERED: DOCUSATE SODIUM 100MG CAPSULE PO PRN ×2 (16:45→17:00)
[2021-02-09] MEDS ORDERED: GUAIFENESIN 200MG/10ML SUGAR FREE UDC PO PRN ×2 (16:45→17:00)
[2021-02-09] MEDS ORDERED: ACETAMINOPHEN 650MG SUPP PR PRN (16:45)
[2021-02-09] MEDS ORDERED: DEXTROSE 50% WATER 50ML SYRINGE IV PRN (16:45)
[2021-02-09] MEDS ORDERED: ONDANSETRON HCL 4MG/2ML INJ IV PRN ×2 (16:45→17:00)
[2021-02-09] MEDS ORDERED: NA PHOS,M-B/NA PHOS,DI-BA ENEMA 118ML PR PRN ×2 (16:45→17:00)
[2021-02-09] MEDS ORDERED: ENOXAPARIN 40MG/0.4ML SYR SUBCUT SCH (17:00)
[2021-02-09] MEDS ORDERED: HYDROCODONE/ACETAMINOPHEN 5/325MG TABLET PO PRN (17:00)
[2021-02-09] MEDS ORDERED: LORAZEPAM 2MG/ML CPJ IV PRN (17:00)
[2021-02-09] MEDS ORDERED: IPRATROPIUM/ALBUTEROL 0.5-3(2.5)MG/3ML NEB HHN PRN (17:00)
[2021-02-09 17:13] LABS: INR 1.2; PROTHROMBIN TIME 12.7 sec (9.6-11.0)
[2021-02-09] MEDS ORDERED: PIPERACILLIN/TAZ 3.375G PREMIX 50 ML IV SCH (17:13)
[2021-02-09] MEDS ORDERED: CEFTRIAXONE 1 G PREMIX 50 ML IV SCH (17:21)
[2021-02-09] MEDS: VANCOMYCIN 1 G PREMIX 200 ML IV NR ×2 (17:24→21:18)
[2021-02-09] MEDS ORDERED: ENOXAPARIN 30MG/0.3ML SYR SUBCUT SCH (18:00)
[2021-02-09] MEDS: BLOOD SUGAR DIAGNOSTIC STRIP TEST SCH ×2 (18:29→21:45)
[2021-02-09 19:54] LABS: HEPATITIS B SURFACE ANTIGEN NEGATIVE
[2021-02-09] MEDS ORDERED: VANCOMYCIN 750 MG PREMIX 150 ML IV NR (20:00)
[2021-02-09 22:25] VITALS: BP 108/57
[2021-02-09] MEDS ORDERED: NALOXONE HCL 0.4MG/ML VIAL IV PRN (23:45)
[2021-02-10] VITALS: BP 99/51
[2021-02-10] MEDS ORDERED: DEXTROSE 50% WATER 50ML SYRINGE IV PRN (01:00)
[2021-02-10 04:00] VITALS: BP 107/59
[2021-02-10] MEDS: MORPHINE SULFATE 2 MG/ML CPJ (NOT FOR IM USE) IV PRN ×3 (04:06→19:55)
[2021-02-10] MEDS: BLOOD SUGAR DIAGNOSTIC STRIP TEST SCH ×4 (06:20→21:26)
[2021-02-10] MEDS: INSULIN LISPRO 100 UNITS/ML SUBCUT SCH ×4 (06:20→21:00)
[2021-02-10 08:00] VITALS: BP 110/56
[2021-02-10] MEDS: FAMOTIDINE 20MG/2ML VIAL IV SCH (08:28)
[2021-02-10 09:29] LABS: HEMATOCRIT. 28.2 % (42.0-52.0); HEMOGLOBIN. 9.4 g/dL (14.0-18.0); MEAN CORPUSCULAR HEMOGLOBIN 31.2 pg (28.0-32.0); MEAN CORPUSCULAR VOLUME 93.2 fL (80.0-94.0); MEAN PLATELET VOLUME 9.6 fl (7.4-10.4); PLATELET 178 x1000/uL (130-400); RED BLOOD CELL COUNT 3.03 mill/uL (4.7-6.1); RED CELL DISTRIBUTION WIDTH 17.3 % (11.6-14.6)
[2021-02-10 09:49] LABS: CHLORIDE 97 mEq/L (98-107)
[2021-02-10 09:58] LABS: HDL CHOLESTEROL 65 mg/dL (40-59); LDL CHOLESTEROL 47 mg/dL (5-100); T4 FREE 1.14 ng/dL (0.76-1.46)
[2021-02-10 12:00] VITALS: BP 106/50
[2021-02-10] MEDS: HYDROCODONE/ACETAMINOPHEN 5/325MG TABLET PO PRN (13:16)
[2021-02-10 16:00] VITALS: BP 102/53
[2021-02-10 16:49] LABS: PLATELET ESTIMATE NORMAL
[2021-02-10] MEDS: CEFTRIAXONE 1,000 MG in DEXTROSE 5% WATER 50 ML IV SCH (18:48)
[2021-02-10 20:00] VITALS: BP 117/54
[2021-02-11] VITALS: BP 121/61
[2021-02-11 04:00] VITALS: BP 119/56
[2021-02-11] MEDS: BLOOD SUGAR DIAGNOSTIC STRIP TEST SCH ×4 (05:52→20:25)
[2021-02-11] MEDS: INSULIN LISPRO 100 UNITS/ML SUBCUT SCH ×4 (05:52→20:25)
[2021-02-11] MEDS: MORPHINE SULFATE 2 MG/ML CPJ (NOT FOR IM USE) IV PRN ×3 (06:35→17:04)
[2021-02-11 08:00] VITALS: BP 118/61
[2021-02-11] MEDS: FAMOTIDINE 20MG/2ML VIAL IV SCH (08:09)
[2021-02-11 12:00] VITALS: BP 119/56
[2021-02-11] MEDS ORDERED: VANCOMYCIN 750 MG PREMIX 150 ML IV SCH (12:00)
[2021-02-11 16:00] VITALS: BP 118/65
[2021-02-11] MEDS ORDERED: IOHEXOL-350 100 ML BOTTLE ONE (16:25)
[2021-02-11] MEDS: CEFTRIAXONE 1,000 MG in DEXTROSE 5% WATER 50 ML IV SCH (17:03)
[2021-02-11] MEDS: SEVELAMER CARBONATE 800 MG TABLET PO SCH (17:03)
[2021-02-11 19:17] LABS: BASOPHILS % 0.8 % (0.0-2.0); EOSINOPHILS % 1.6 % (0.0-5.0); HEMATOCRIT. 30.6 % (42.0-52.0); HEMOGLOBIN. 10.2 g/dL (14.0-18.0); LYMPHOCYTES % 8.4 % (20.0-50.0); MEAN CORPUSCULAR HEMOGLOBIN 31.4 pg (28.0-32.0); MEAN PLATELET VOLUME 9.2 fl (7.4-10.4); MONOCYTES % 14.7 % (2.0-8.0); NEUTROPHILS % 74.5 % (40.0-76.0); PLATELET 186 x1000/uL (130-400); RED BLOOD CELL COUNT 3.25 mill/uL (4.7-6.1)
[2021-02-11 19:24] LABS: CHLORIDE 98 mEq/L (98-107)
[2021-02-11 20:00] VITALS: BP 134/68
[2021-02-12] VITALS: BP 136/72
[2021-02-12] MEDS: MORPHINE SULFATE 2 MG/ML CPJ (NOT FOR IM USE) IV PRN ×4 (00:30→21:25)
[2021-02-12 04:00] VITALS: BP 139/77
[2021-02-12] MEDS: INSULIN LISPRO 100 UNITS/ML SUBCUT SCH ×4 (06:18→21:00)
[2021-02-12] MEDS: BLOOD SUGAR DIAGNOSTIC STRIP TEST SCH ×4 (06:18→21:24)
[2021-02-12] MEDS: SEVELAMER CARBONATE 800 MG TABLET PO SCH ×3 (06:18→16:24)
[2021-02-12 08:00] VITALS: BP 116/71
[2021-02-12 08:24] LABS: BASOPHILS % 0.8 % (0.0-2.0); EOSINOPHILS % 0.4 % (0.0-5.0); HEMATOCRIT. 32.1 % (42.0-52.0); HEMOGLOBIN. 10.6 g/dL (14.0-18.0); LYMPHOCYTES % 12.3 % (20.0-50.0); MEAN CORPUSCULAR HEMOGLOBIN 30.9 pg (28.0-32.0); MEAN PLATELET VOLUME 9.6 fl (7.4-10.4); MONOCYTES % 11.3 % (2.0-8.0); NEUTROPHILS % 75.2 % (40.0-76.0); PLATELET 200 x1000/uL (130-400); RED BLOOD CELL COUNT 3.42 mill/uL (4.7-6.1); RED CELL DISTRIBUTION WIDTH 16.9 % (11.6-14.6)
[2021-02-12] MEDS: FAMOTIDINE 20MG/2ML VIAL IV SCH (08:56)
[2021-02-12 12:00] VITALS: BP 127/67
[2021-02-12 16:00] VITALS: BP 125/68
[2021-02-12] MEDS: CEFTRIAXONE 1,000 MG in DEXTROSE 5% WATER 50 ML IV SCH (16:24)
[2021-02-12 20:00] VITALS: BP 123/73
[2021-02-13] VITALS: BP 146/66
[2021-02-13] MEDS: MORPHINE SULFATE 2 MG/ML CPJ (NOT FOR IM USE) IV PRN ×5 (03:48→23:30)
[2021-02-13 04:00] VITALS: BP 128/67
[2021-02-13] MEDS: SEVELAMER CARBONATE 800 MG TABLET PO SCH ×3 (06:11→17:20)
[2021-02-13] MEDS: BLOOD SUGAR DIAGNOSTIC STRIP TEST SCH ×4 (06:11→21:19)
[2021-02-13] MEDS: INSULIN LISPRO 100 UNITS/ML SUBCUT SCH ×4 (06:11→21:00)
[2021-02-13 07:29] LABS: HEMATOCRIT. 30.9 % (42.0-52.0); MEAN CORPUSCULAR HEMOGLOBIN 30.5 pg (28.0-32.0); MEAN PLATELET VOLUME 9.4 fl (7.4-10.4); PLATELET 186 x1000/uL (130-400); RED BLOOD CELL COUNT 3.29 mill/uL (4.7-6.1); RED CELL DISTRIBUTION WIDTH 16.6 % (11.6-14.6)
[2021-02-13 08:00] VITALS: BP 123/68
[2021-02-13] MEDS ORDERED: FAMOTIDINE 20MG TABLET PO SCH (09:00)
[2021-02-13] MEDS: FAMOTIDINE 20MG/2ML VIAL IV SCH (09:42)
[2021-02-13 10:42] LABS: PLATELET ESTIMATE NORMAL
[2021-02-13] MEDS ORDERED: VANCOMYCIN 750 MG PREMIX 150 ML IV NR (11:30)
[2021-02-13 12:00] VITALS: BP 132/71
[2021-02-13 17:00] VITALS: BP 135/72
[2021-02-13] MEDS: CEFTRIAXONE 1,000 MG in DEXTROSE 5% WATER 50 ML IV SCH (17:20)
[2021-02-13 20:00] VITALS: BP 103/63
[2021-02-14] VITALS: BP 114/59
[2021-02-14] MEDS ORDERED: DEXT 5%/0.45% NACL 1000ML 1,000 ML IV ONE
[2021-02-14] MEDS: MORPHINE SULFATE 2 MG/ML CPJ (NOT FOR IM USE) IV PRN ×3 (03:38→21:48)
[2021-02-14 04:00] VITALS: BP 135/75
[2021-02-14] MEDS: BLOOD SUGAR DIAGNOSTIC STRIP TEST SCH ×4 (07:00→21:05)
[2021-02-14] MEDS: INSULIN LISPRO 100 UNITS/ML SUBCUT SCH ×4 (07:01→21:06)
[2021-02-14] MEDS: SEVELAMER CARBONATE 800 MG TABLET PO SCH ×3 (07:01→18:38)
[2021-02-14 07:10] LABS: HEMATOCRIT. 30.3 % (42.0-52.0); MEAN CORPUSCULAR HEMOGLOBIN 30.7 pg (28.0-32.0); MEAN CORPUSCULAR VOLUME 93.2 fL (80.0-94.0); MEAN PLATELET VOLUME 9.4 fl (7.4-10.4); PLATELET 178 x1000/uL (130-400); RED BLOOD CELL COUNT 3.25 mill/uL (4.7-6.1); RED CELL DISTRIBUTION WIDTH 16.5 % (11.6-14.6)
[2021-02-14] MEDS ORDERED: IODIXANOL 320MG/ML 100 ML BOTTLE IV ONE (07:51)
[2021-02-14] MEDS ORDERED: LIDOCAINE HCL 1% 20ML VIAL (Pyxis) INJ ONE (07:51)
[2021-02-14] MEDS ORDERED: IOHEXOL-300 100 ML BOTTLE ONE (07:55)
[2021-02-14] MEDS ORDERED: HEPARIN SODIUM 1,000 UNIT/1ML VIAL IV ONE (08:00)
[2021-02-14] MEDS ORDERED: MIDAZOLAM HCL 2 MG/2 ML VIAL ONE (08:06)
[2021-02-14] MEDS ORDERED: FENTANYL CITRATE/PF 50MCG/ML 2ML VIAL ONE (08:06)
[2021-02-14] MEDS ORDERED: FENTANYL CITRATE/PF 50MCG/ML 5ML VIAL ONE (09:21)
[2021-02-14] MEDS ORDERED: MIDAZOLAM HCL 5 MG/5 ML VIAL ONE (09:21)
[2021-02-14] MEDS: FAMOTIDINE 20MG/2ML VIAL IV SCH (09:45)
[2021-02-14 09:49] VITALS: BP 109/63
[2021-02-14 12:00] VITALS: BP 112/54
[2021-02-14] MEDS: HYDROCODONE/ACETAMINOPHEN 5/325MG TABLET PO PRN (13:02)
[2021-02-14 13:19] LABS: PLATELET ESTIMATE NORMAL
[2021-02-14 16:00] VITALS: BP 109/60
[2021-02-14] MEDS ORDERED: HYDROCODONE/ACETAMINOPHEN 5/325MG TABLET PO PRN (19:15)
[2021-02-14 20:00] VITALS: BP 136/56
[2021-02-14] MEDS ORDERED: VANCOMYCIN 750 MG PREMIX 150 ML IV SCH (21:00)
[2021-02-15] VITALS: BP 110/58
[2021-02-15 04:00] VITALS: BP 117/66
[2021-02-15 06:21] LABS: HEMATOCRIT. 31.3 % (42.0-52.0); HEMOGLOBIN. 10.7 g/dL (14.0-18.0); MEAN CORPUSCULAR HEMOGLOBIN 32.1 pg (28.0-32.0); MEAN CORPUSCULAR VOLUME 94.2 fL (80.0-94.0); MEAN PLATELET VOLUME 9.4 fl (7.4-10.4); PLATELET 185 x1000/uL (130-400); RED BLOOD CELL COUNT 3.32 mill/uL (4.7-6.1); RED CELL DISTRIBUTION WIDTH 16.7 % (11.6-14.6)
[2021-02-15] MEDS: BLOOD SUGAR DIAGNOSTIC STRIP TEST SCH ×4 (06:36→20:57)
[2021-02-15] MEDS: INSULIN LISPRO 100 UNITS/ML SUBCUT SCH ×4 (06:36→21:13)
[2021-02-15 08:00] VITALS: BP 125/66
[2021-02-15] MEDS: FAMOTIDINE 20MG/2ML VIAL IV SCH (08:30)
[2021-02-15] MEDS: SEVELAMER CARBONATE 800 MG TABLET PO SCH ×3 (08:30→16:46)
[2021-02-15] MEDS: MORPHINE SULFATE 2 MG/ML CPJ (NOT FOR IM USE) IV PRN ×3 (09:02→21:18)
[2021-02-15 12:00] VITALS: BP 128/65
[2021-02-15] MEDS ORDERED: NALOXONE HCL 0.4MG/ML VIAL IV PRN (15:30)
[2021-02-15 16:00] VITALS: BP 107/59
[2021-02-15 16:56] LABS: PLATELET ESTIMATE NORMAL
[2021-02-15 20:00] VITALS: BP 118/64
[2021-02-16] VITALS: BP 117/63
[2021-02-16] MEDS ORDERED: DEXT 5%/0.9% NACL 1,000 ML IV ONE
[2021-02-16] MEDS: MORPHINE SULFATE 2 MG/ML CPJ (NOT FOR IM USE) IV PRN ×2 (02:14→06:35)
[2021-02-16 04:00] VITALS: BP 122/61
[2021-02-16] MEDS: BLOOD SUGAR DIAGNOSTIC STRIP TEST SCH ×4 (06:16→21:27)
[2021-02-16] MEDS: SEVELAMER CARBONATE 800 MG TABLET PO SCH ×3 (06:17→17:24)
[2021-02-16] MEDS: INSULIN LISPRO 100 UNITS/ML SUBCUT SCH ×4 (06:17→21:00)
[2021-02-16 07:06] LABS: HEMATOCRIT. 30.9 % (42.0-52.0); HEMOGLOBIN. 10.1 g/dL (14.0-18.0); MEAN CORPUSCULAR HEMOGLOBIN 30.6 pg (28.0-32.0); MEAN CORPUSCULAR VOLUME 93.1 fL (80.0-94.0); MEAN PLATELET VOLUME 9.2 fl (7.4-10.4); PLATELET 187 x1000/uL (130-400); RED BLOOD CELL COUNT 3.32 mill/uL (4.7-6.1); RED CELL DISTRIBUTION WIDTH 16.7 % (11.6-14.6)
[2021-02-16 08:00] VITALS: BP 105/56
[2021-02-16] MEDS: FAMOTIDINE 20MG/2ML VIAL IV SCH (08:21)
[2021-02-16] MEDS ORDERED: POLYMYXIN B SULFATE 500000 UNITS/VIAL ONE (09:42)
[2021-02-16] MEDS ORDERED: LIDOCAINE HCL 1% 20ML VIAL (Pyxis) INJ ONE (09:42)
[2021-02-16] MEDS ORDERED: GENTAMICIN SULF 40MG/ML 2ML VIAL ONE (09:42)
[2021-02-16] MEDS ORDERED: BUPIVACAINE HCL 0.5% (5MG/ML) 50ML ONE (09:43)
[2021-02-16] MEDS ORDERED: FENTANYL CITRATE/PF 50MCG/ML 2ML VIAL ONE ×2 (10:27→10:36)
[2021-02-16] MEDS ORDERED: BACITRACIN 15GM TUBE TOP ONE (10:56)
[2021-02-16] MEDS ORDERED: HYDROMORPHONE HCL/PF 2MG/ML CPJ IV PRN (11:15)
[2021-02-16] MEDS ORDERED: MEPERIDINE HCL/PF 25MG/ML CPJ IV PRN (11:15)
[2021-02-16] MEDS ORDERED: ONDANSETRON HCL 4MG/2ML INJ IV PRN (11:15)
[2021-02-16] MEDS ORDERED: LABETALOL 5MG/ML SYR 20 MG/4 ML SYRINGE IV PRN (11:15)
[2021-02-16 12:00] VITALS: BP 111/59
[2021-02-16 14:19] LABS: PLATELET ESTIMATE NORMAL
[2021-02-16] MEDS ORDERED: AMOX1TAB49 MT (14:55)
[2021-02-16] MEDS ORDERED: HYDR-4001 MT (14:55)
[2021-02-16 16:00] VITALS: BP 119/62
[2021-02-16 20:00] VITALS: BP 119/68
[2021-02-17] VITALS: BP 121/69
[2021-02-17 04:00] VITALS: BP 131/73
[2021-02-17] MEDS: MORPHINE SULFATE 2 MG/ML CPJ (NOT FOR IM USE) IV PRN ×3 (05:09→13:09)
[2021-02-17] MEDS: BLOOD SUGAR DIAGNOSTIC STRIP TEST SCH ×2 (06:31→12:39)
[2021-02-17] MEDS: SEVELAMER CARBONATE 800 MG TABLET PO SCH ×2 (06:31→12:39)
[2021-02-17] MEDS: INSULIN LISPRO 100 UNITS/ML SUBCUT SCH ×2 (07:10→12:10)
[2021-02-17 08:00] VITALS: BP 126/74
[2021-02-17] MEDS: FAMOTIDINE 20MG/2ML VIAL IV SCH (09:17)
[2021-02-17 12:00] VITALS: BP 121/68
[2021-02-17 13:01] LABS: BASOPHILS % 1.1 % (0.0-2.0); EOSINOPHILS % 0.9 % (0.0-5.0); HEMATOCRIT. 31.1 % (42.0-52.0); HEMOGLOBIN. 10.7 g/dL (14.0-18.0); LYMPHOCYTES % 11.3 % (20.0-50.0); MEAN CORPUSCULAR HEMOGLOBIN 31.5 pg (28.0-32.0); MEAN CORPUSCULAR VOLUME 91.7 fL (80.0-94.0); MEAN PLATELET VOLUME 9.3 fl (7.4-10.4); MONOCYTES % 12.4 % (2.0-8.0); NEUTROPHILS % 74.3 % (40.0-76.0); PLATELET 185 x1000/uL (130-400); RED BLOOD CELL COUNT 3.39 mill/uL (4.7-6.1)
[2021-02-17 14:14] VITALS: BP 121/68
[2021-02-18] MEDS ORDERED: FAMOTIDINE 20MG TABLET PO SCH (09:00)
== END 2021-02-17 14:40 | disposition home health service (06) | DRG 270 ==
LOC: ER 11:32 → MICUSO 14:44 → EDBEDREQTM 14:46 → EDBEDREQ 14:46 → 7EST 20:32
PROVIDERS: ADMIT Internal Medicine; ATTEND Internal Medicine
PROC: 5A1D70Z Performance of Urinary Filtration, Intermittent, Less than 6 Hours Per Day (ICD-10-PCS; 2021-02-10)
PROC: 5A1D70Z Performance of Urinary Filtration, Intermittent, Less than 6 Hours Per Day (ICD-10-PCS; 2021-02-12)
PROC: 5A1D70Z Performance of Urinary Filtration, Intermittent, Less than 6 Hours Per Day (ICD-10-PCS; 2021-02-13)
PROC: 04CL3ZZ Extirpation of Matter from Left Femoral Artery, Percutaneous Approach (ICD-10-PCS; principal; 2021-02-14)
PROC: 047L3ZZ Dilation of Left Femoral Artery, Percutaneous Approach (ICD-10-PCS; 2021-02-14)
PROC: 047S3ZZ Dilation of Left Posterior Tibial Artery, Percutaneous Approach (ICD-10-PCS; 2021-02-14)
PROC: 047U3ZZ Dilation of Left Peroneal Artery, Percutaneous Approach (ICD-10-PCS; 2021-02-14)
PROC: 04HK33Z Insertion of Infusion Device into Right Femoral Artery, Percutaneous Approach (ICD-10-PCS; 2021-02-14)
PROC: 04HK33Z Insertion of Infusion Device into Right Femoral Artery, Percutaneous Approach (ICD-10-PCS; 2021-02-14)
PROC: 04HN33Z Insertion of Infusion Device into Left Popliteal Artery, Percutaneous Approach (ICD-10-PCS; 2021-02-14)
PROC: B41F1ZZ Fluoroscopy of Right Lower Extremity Arteries using Low Osmolar Contrast (ICD-10-PCS; 2021-02-14)
PROC: 5A1D70Z Performance of Urinary Filtration, Intermittent, Less than 6 Hours Per Day (ICD-10-PCS; 2021-02-15)
PROC: 5A1D70Z Performance of Urinary Filtration, Intermittent, Less than 6 Hours Per Day (ICD-10-PCS; 2021-02-16)
PROC: 0Y6Q0Z3 Detachment at Left 1st Toe, Low, Open Approach (ICD-10-PCS; 2021-02-17)
DX: E11.52 Type 2 diabetes mellitus with diabetic peripheral angiopathy with gangrene (principal); N18.6 End stage renal disease; G93.41 Metabolic encephalopathy; I70.262 Atherosclerosis of native arteries of extremities with gangrene, left leg; I13.2 Hypertensive heart and chronic kidney disease with heart failure and with stage 5 chronic kidney disease, or end stage renal disease; E46 Unspecified protein-calorie malnutrition; M86.8X7 Other osteomyelitis, ankle and foot; I42.9 Cardiomyopathy, unspecified; E11.69 Type 2 diabetes mellitus with other specified complication; L08.9 Local infection of the skin and subcutaneous tissue, unspecified; D64.9 Anemia, unspecified; Z20.822 Contact with and (suspected) exposure to COVID-19; E11.22 Type 2 diabetes mellitus with diabetic chronic kidney disease; I25.10 Atherosclerotic heart disease of native coronary artery without angina pectoris; E78.5 Hyperlipidemia, unspecified; I36.1 Nonrheumatic tricuspid (valve) insufficiency; N40.0 Benign prostatic hyperplasia without lower urinary tract symptoms; I44.1 Atrioventricular block, second degree; I50.9 Heart failure, unspecified; K21.9 Gastro-esophageal reflux disease without esophagitis; Z82.49 Family history of ischemic heart disease and other diseases of the circulatory system; I25.2 Old myocardial infarction; Z87.11 Personal history of peptic ulcer disease; Z95.810 Presence of automatic (implantable) cardiac defibrillator; Z99.2 Dependence on renal dialysis; Z79.891 Long term (current) use of opiate analgesic; Z79.899 Other long term (current) drug therapy; Z68.22 Body mass index [BMI] 22.0-22.9, adult; Z79.4 Long term (current) use of insulin
CPT/HCPCS: 36415; 37225; 37228; 71045; 73620; 73700; 75635; 75710; 80048; 80053; 80061; 80202; 82962; 83036; 83735; 83880; 84100; 84439; 84443; 84484; 85025; 85347; 85651; 86141; 86705; 86709; 86803; 87340; 87426; 88305; 88311; 93005; 93923; 93970; 97162; 97164; 99285; C1725; C1760; C1769; C1885; C1887; C1893; C1894; J0696; J1580; J1644; J1650; J1815; J2250; J2270; J2543; J3010; J3370; J3490; J7040; J7042; J7060; Q9967

== ENCOUNTER 2021-03-09 20:56 | Inpatient (IN) | payer BC ==
[~2021-03-09] VITALS: Ht 175.3 cm; Wt 95.8 kg
[~2021-03-09 20:56] MED LIST changes: +AMOX1TAB49 MT; -CLIN300C12 MT
[2021-03-09] MEDS ORDERED: PIPERACILLIN/TAZ 3.375G PREMIX 50 ML IV ONE (21:30)
[2021-03-09] MEDS ORDERED: VANCOMYCIN 1 G PREMIX 200 ML IV ONE (21:30)
[2021-03-09] MEDS ORDERED: SODIUM CHLORIDE 0.9% 1000ML BAG (SEPSIS BOLUS) IV ONE (21:30)
[2021-03-09 22:02] LABS: HEMATOCRIT. 33.9 % (42.0-52.0); HEMOGLOBIN. 11.3 g/dL (14.0-18.0); MEAN CORPUSCULAR HEMOGLOBIN 30.7 pg (28.0-32.0); MEAN CORPUSCULAR VOLUME 92.5 fL (80.0-94.0); MEAN PLATELET VOLUME 9.9 fl (7.4-10.4); PLATELET 162 x1000/uL (130-400); RED BLOOD CELL COUNT 3.67 mill/uL (4.7-6.1); RED CELL DISTRIBUTION WIDTH 18.7 % (11.6-14.6)
[2021-03-09 22:07] LABS: CHLORIDE 95 mEq/L (98-107)
[2021-03-09 22:12] LABS: INR 1.4; PARTIAL THROMBOPLASTIN TIME 36.5 sec (23.4-31.0); PROTHROMBIN TIME 14.3 sec (9.6-11.0)
[2021-03-09 22:39] LABS: PLATELET ESTIMATE NORMAL
[2021-03-09] MEDS ORDERED: ALBUTEROL (0.083%) 2.5MG/3ML NEB HHN ONE (22:45)
[2021-03-09] MEDS ORDERED: SODIUM POLYSTYRENE SULFONATE 15 G/60 ML BOT PO ONE (22:45)
[2021-03-09] MEDS ORDERED: INSULIN REGULAR (HUMULIN R) 300UNITS/3ML VIAL IV ONE (22:45)
[2021-03-09] MEDS ORDERED: SODIUM BICARBONATE 8.4% 1 MEQ/ML 50ML SYR IV ONE (22:45)
[2021-03-09] MEDS ORDERED: DEXTROSE 50% WATER 50ML SYRINGE IV ONE (22:45)
[2021-03-10 11:00] VITALS: BP 91/46
[2021-03-10] MEDS ORDERED: GUAIFENESIN 200MG/10ML SUGAR FREE UDC PO PRN (11:00)
[2021-03-10] MEDS ORDERED: DIPHENHYDRAMINE 50MG/ML VIAL IV PRN (11:00)
[2021-03-10] MEDS ORDERED: ONDANSETRON HCL 4MG/2ML INJ IV PRN (11:00)
[2021-03-10] MEDS ORDERED: IPRATROPIUM/ALBUTEROL 0.5-3(2.5)MG/3ML NEB NEB PRN (11:00)
[2021-03-10] MEDS ORDERED: DEXTROSE 50% WATER 50ML SYRINGE IV PRN (11:00)
[2021-03-10] MEDS ORDERED: CLONIDINE 0.1MG TABLET PO PRN (11:00)
[2021-03-10] MEDS ORDERED: ACETAMINOPHEN 650MG SUPP PR PRN (11:00)
[2021-03-10] MEDS ORDERED: HYDROCODONE/ACETAMINOPHEN 5/325MG TABLET PO PRN (11:00)
[2021-03-10] MEDS ORDERED: ACETAMINOPHEN 650MG/20.3ML UDC GT PRN (11:00)
[2021-03-10] MEDS ORDERED: LORAZEPAM 0.5MG TABLET PO PRN (11:00)
[2021-03-10] MEDS ORDERED: MAGNESIUM/ALUMINUM HYDROXIDE/SIMETHICONE 30ML UDC PO PRN (11:00)
[2021-03-10] MEDS ORDERED: DOCUSATE SODIUM 100MG CAPSULE PO PRN (11:00)
[2021-03-10 12:00] VITALS: BP 91/46
[2021-03-10] MEDS: BLOOD SUGAR DIAGNOSTIC STRIP TEST SCH ×3 (12:40→21:47)
[2021-03-10 12:52] LABS: BG BASE EXCESS -2.4 mmol/L (-2.0-2.0); BG CARBOXYHEMOGLOBIN 0.2 % (0.5-1.5); BG FRACTION INSPIRED OXYGEN 40; BG HCO3 ACT 20.8 mmol/L (22.0-26.0); BG METHEMOGLOBIN 0.2 % (0.0-1.5); BG OXYHEMOGLOBIN 98.6 % (94.0-97.0); BG PCO2 30.8 mmHg (35.0-45.0); BG PH 7.448 (7.350-7.450); BG PO2 173.3 mmHg (75.0-100.0); BG SAMPLE SITE RIGHT BRACHIAL; BG TOTAL HEMOGLOBIN 10.8 g/dL (12.0-18.0); BG VENT MODE NASAL CANNULA
[2021-03-10] MEDS ORDERED: VANCOMYCIN 500 MG PREMIX 100 ML IV SCH (13:00)
[2021-03-10] MEDS: INSULIN LISPRO 100 UNITS/ML SUBCUT SCH ×3 (13:10→21:47)
[2021-03-10] MEDS: PIPERACILLIN/TAZOBACTAM 3.375 G in DEXTROSE 5% WATER 50 ML IV SCH ×2 (13:29→21:40)
[2021-03-10] MEDS: DEXAMETHASONE 10 MG/ML VIAL IV SCH (15:20)
[2021-03-10 16:00] VITALS: BP 91/45
[2021-03-10] MEDS: ALBUTEROL 6.7GM HFA INHALER ORI SCH ×2 (16:00→21:48)
[2021-03-10 17:36] LABS: HEMATOCRIT. 32.1 % (42.0-52.0); HEMOGLOBIN. 10.6 g/dL (14.0-18.0); MEAN CORPUSCULAR HEMOGLOBIN 30.8 pg (28.0-32.0); MEAN CORPUSCULAR VOLUME 93.4 fL (80.0-94.0); MEAN PLATELET VOLUME 10.2 fl (7.4-10.4); PLATELET 146 x1000/uL (130-400); RED BLOOD CELL COUNT 3.43 mill/uL (4.7-6.1); RED CELL DISTRIBUTION WIDTH 18.9 % (11.6-14.6)
[2021-03-10 17:45] LABS: CHLORIDE 95 mEq/L (98-107)
[2021-03-10 17:46] LABS: INR 1.5; PROTHROMBIN TIME 15.5 sec (9.6-11.0)
[2021-03-10 17:55] LABS: CREATINE KINASE 95 IU/L (39-308)
[2021-03-10 17:58] LABS: CREATINE KINASE MB FRACTION 1.1 ng/mL (0.5-3.6)
[2021-03-10 18:19] LABS: PLATELET ESTIMATE NORMAL
[2021-03-10 18:55] LABS: PHOSPHORUS 7.9 mg/dL (2.5-4.9)
[2021-03-10 19:08] VITALS: BP 94/51
[2021-03-10 19:24] LABS: HEPATITIS B SURFACE ANTIGEN NEGATIVE
[2021-03-10] MEDS: HEPARIN 5000 UNITS/ML VIAL SUBCUT SCH (21:41)
[2021-03-10] MEDS: FAMOTIDINE 20MG TABLET PO SCH (21:41)
[2021-03-11] VITALS (7 sets, daily range): BP systolic 76–136; BP diastolic 28–82
[2021-03-11 01:45] LABS: CREATINE KINASE MB FRACTION 1.2 ng/mL (0.5-3.6)
[2021-03-11] MEDS: ALBUTEROL 6.7GM HFA INHALER ORI SCH ×4 (05:22→21:12)
[2021-03-11] MEDS: BLOOD SUGAR DIAGNOSTIC STRIP TEST SCH ×4 (06:42→21:13)
[2021-03-11] MEDS ORDERED: ALBUMIN HUMAN 25GM/100ML (25%) IV NR (07:30)
[2021-03-11] MEDS: INSULIN LISPRO 100 UNITS/ML SUBCUT SCH ×4 (07:42→20:48)
[2021-03-11] MEDS: PIPERACILLIN/TAZOBACTAM 3.375 G in DEXTROSE 5% WATER 50 ML IV SCH ×2 (09:04→20:46)
[2021-03-11] MEDS: HEPARIN 5000 UNITS/ML VIAL SUBCUT SCH ×2 (09:05→21:12)
[2021-03-11] MEDS ORDERED: LIDOCAINE HCL 1% 20ML VIAL (Pyxis) INJ ONE (09:06)
[2021-03-11] MEDS: DEXAMETHASONE 10 MG/ML VIAL IV SCH (09:37)
[2021-03-11 10:39] LABS: BG BASE EXCESS 3.3 mmol/L (-2.0-2.0); BG CARBOXYHEMOGLOBIN 0.1 % (0.5-1.5); BG DEOXYHEMOGLOBIN 1.4 % (0.0-5.0); BG FRACTION INSPIRED OXYGEN 40; BG HCO3 ACT 28.4 mmol/L (22.0-26.0); BG METHEMOGLOBIN 0.2 % (0.0-1.5); BG OXYGEN SATURATION 98.6 % (92.0-98.5); BG OXYHEMOGLOBIN 98.3 % (94.0-97.0); BG PCO2 45.2 mmHg (35.0-45.0); BG PH 7.416 (7.350-7.450); BG PO2 137.3 mmHg (75.0-100.0); BG SAMPLE SITE RIGHT BRACHIAL; BG TOTAL HEMOGLOBIN 11.4 g/dL (12.0-18.0); BG VENT MODE NASAL CANNULA
[2021-03-11 17:34] LABS: CHLORIDE 94 mEq/L (98-107)
[2021-03-11 17:36] LABS: HEMATOCRIT. 30.6 % (42.0-52.0); HEMOGLOBIN. 10.1 g/dL (14.0-18.0); MEAN CORPUSCULAR HEMOGLOBIN 30.8 pg (28.0-32.0); MEAN CORPUSCULAR VOLUME 93.1 fL (80.0-94.0); MEAN PLATELET VOLUME 9.9 fl (7.4-10.4); PLATELET 130 x1000/uL (130-400); RED BLOOD CELL COUNT 3.29 mill/uL (4.7-6.1); RED CELL DISTRIBUTION WIDTH 18.8 % (11.6-14.6)
[2021-03-11 17:43] LABS: LDL CHOLESTEROL 33 mg/dL (5-100)
[2021-03-11 17:44] LABS: HDL CHOLESTEROL 35 mg/dL (40-59)
[2021-03-11 17:45] LABS: T4 FREE 0.78 ng/dL (0.76-1.46)
[2021-03-11 19:51] LABS: PLATELET ESTIMATE NORMAL
[2021-03-11] MEDS: FAMOTIDINE 20MG TABLET PO SCH (20:46)
[2021-03-11] MEDS ORDERED: EPOETIN ALFA 10000UNITS/ML VIAL SUBCUT NR (22:45)
[2021-03-11] MEDS ORDERED: SODIUM CHLORIDE 0.9% 250 ML IV ONE (23:00)
[2021-03-12] VITALS (7 sets, daily range): BP systolic 77–149; BP diastolic 32–87
[2021-03-12] MEDS: ALBUTEROL 6.7GM HFA INHALER ORI SCH ×4 (04:29→22:03)
[2021-03-12] MEDS: MIDODRINE HCL 5MG TABLET PO PRN (04:29)
[2021-03-12] MEDS: BLOOD SUGAR DIAGNOSTIC STRIP TEST SCH ×4 (07:40→21:00)
[2021-03-12] MEDS: PIPERACILLIN/TAZOBACTAM 3.375 G in DEXTROSE 5% WATER 50 ML IV SCH ×2 (08:43→22:02)
[2021-03-12] MEDS: HEPARIN 5000 UNITS/ML VIAL SUBCUT SCH ×2 (08:44→22:04)
[2021-03-12] MEDS: DEXAMETHASONE 10 MG/ML VIAL IV SCH (08:44)
[2021-03-12] MEDS: INSULIN LISPRO 100 UNITS/ML SUBCUT SCH ×4 (08:45→21:58)
[2021-03-12 12:34] LABS: BG BASE EXCESS 0.5 mmol/L (-2.0-2.0); BG CARBOXYHEMOGLOBIN 0.6 % (0.5-1.5); BG DEOXYHEMOGLOBIN 9.4 % (0.0-5.0); BG FRACTION INSPIRED OXYGEN 21; BG HCO3 ACT 24.2 mmol/L (22.0-26.0); BG METHEMOGLOBIN 0.1 % (0.0-1.5); BG OXYGEN SATURATION 90.5 % (92.0-98.5); BG OXYHEMOGLOBIN 89.9 % (94.0-97.0); BG PCO2 35.7 mmHg (35.0-45.0); BG PH 7.449 (7.350-7.450); BG PO2 61.1 mmHg (75.0-100.0); BG SAMPLE SITE RIGHT BRACHIAL; BG TOTAL HEMOGLOBIN 11.5 g/dL (12.0-18.0); BG VENT MODE ROOM AIR
[2021-03-12] MEDS: FAMOTIDINE 20MG TABLET PO SCH (22:02)
[2021-03-13] VITALS: BP 116/51
[2021-03-13 04:00] VITALS: BP 100/49
[2021-03-13] MEDS: ALBUTEROL 6.7GM HFA INHALER ORI SCH ×4 (06:29→21:25)
[2021-03-13] MEDS: BLOOD SUGAR DIAGNOSTIC STRIP TEST SCH ×4 (07:40→20:21)
[2021-03-13 08:00] VITALS: BP 90/66
[2021-03-13] MEDS: DEXAMETHASONE 10 MG/ML VIAL IV SCH (08:39)
[2021-03-13] MEDS: HEPARIN 5000 UNITS/ML VIAL SUBCUT SCH (08:40)
[2021-03-13] MEDS: INSULIN LISPRO 100 UNITS/ML SUBCUT SCH ×4 (08:41→20:23)
[2021-03-13] MEDS: PIPERACILLIN/TAZOBACTAM 3.375 G in DEXTROSE 5% WATER 50 ML IV SCH ×2 (11:23→20:22)
[2021-03-13 12:00] VITALS: BP 121/64
[2021-03-13 16:00] VITALS: BP 141/57
[2021-03-13 16:16] LABS: HEMATOCRIT. 32.8 % (42.0-52.0); HEMOGLOBIN. 10.8 g/dL (14.0-18.0); MEAN CORPUSCULAR HEMOGLOBIN 30.3 pg (28.0-32.0); MEAN CORPUSCULAR VOLUME 91.6 fL (80.0-94.0); MEAN PLATELET VOLUME 10.7 fl (7.4-10.4); PLATELET 123 x1000/uL (130-400); RED BLOOD CELL COUNT 3.58 mill/uL (4.7-6.1); RED CELL DISTRIBUTION WIDTH 18.3 % (11.6-14.6)
[2021-03-13 16:42] LABS: CHLORIDE 87 mEq/L (98-107)
[2021-03-13 20:00] VITALS: BP 92/61
[2021-03-13] MEDS: FAMOTIDINE 20MG TABLET PO SCH (20:22)
[2021-03-13 21:07] LABS: PLATELET ESTIMATE SLIGHTLY DECREASED
[2021-03-14 00:02] VITALS: BP 110/62
[2021-03-14] MEDS: ALBUTEROL 6.7GM HFA INHALER ORI SCH ×3 (03:55→21:15)
[2021-03-14 04:00] VITALS: BP 138/66
[2021-03-14] MEDS: BLOOD SUGAR DIAGNOSTIC STRIP TEST SCH ×4 (07:47→21:14)
[2021-03-14 08:00] VITALS: BP 128/85
[2021-03-14] MEDS: INSULIN LISPRO 100 UNITS/ML SUBCUT SCH ×4 (08:04→21:28)
[2021-03-14] MEDS: PIPERACILLIN/TAZOBACTAM 3.375 G in DEXTROSE 5% WATER 50 ML IV SCH ×2 (08:50→21:14)
[2021-03-14] MEDS: DEXAMETHASONE 10 MG/ML VIAL IV SCH (08:50)
[2021-03-14] MEDS ORDERED: SODIUM BICARBONATE 4% (2.4MEQ) 5ML VIAL IV ONE (09:08)
[2021-03-14 12:00] VITALS: BP 81/42
[2021-03-14 16:00] VITALS: BP 115/37
[2021-03-14 20:00] VITALS: BP 100/35
[2021-03-14 20:31] LABS: HEMATOCRIT. 33.7 % (42.0-52.0); HEMOGLOBIN. 11.4 g/dL (14.0-18.0); MEAN CORPUSCULAR HEMOGLOBIN 30.6 pg (28.0-32.0); MEAN CORPUSCULAR VOLUME 90.2 fL (80.0-94.0); MEAN PLATELET VOLUME 10.2 fl (7.4-10.4); PLATELET 135 x1000/uL (130-400); RED BLOOD CELL COUNT 3.73 mill/uL (4.7-6.1); RED CELL DISTRIBUTION WIDTH 18.1 % (11.6-14.6)
[2021-03-14 20:46] LABS: PLATELET ESTIMATE NORMAL
[2021-03-14] MEDS: FAMOTIDINE 20MG TABLET PO SCH (21:14)
[2021-03-14] MEDS: MIDODRINE HCL 5MG TABLET PO PRN (23:09)
[2021-03-15] VITALS: BP 91/45
[2021-03-15 04:00] VITALS: BP 143/63
[2021-03-15] MEDS: ALBUTEROL 6.7GM HFA INHALER ORI SCH ×4 (05:32→23:19)
[2021-03-15] MEDS: BLOOD SUGAR DIAGNOSTIC STRIP TEST SCH ×4 (06:55→21:00)
[2021-03-15] MEDS: DEXAMETHASONE 10 MG/ML VIAL IV SCH (07:36)
[2021-03-15] MEDS: INSULIN LISPRO 100 UNITS/ML SUBCUT SCH ×4 (07:36→21:00)
[2021-03-15 08:00] VITALS: BP 105/65
[2021-03-15 10:16] LABS: HEMATOCRIT. 37.5 % (42.0-52.0); HEMOGLOBIN. 12.2 g/dL (14.0-18.0); MEAN CORPUSCULAR HEMOGLOBIN 30.2 pg (28.0-32.0); MEAN CORPUSCULAR VOLUME 93.3 fL (80.0-94.0); MEAN PLATELET VOLUME 11.2 fl (7.4-10.4); PLATELET 164 x1000/uL (130-400); RED BLOOD CELL COUNT 4.02 mill/uL (4.7-6.1); RED CELL DISTRIBUTION WIDTH 18.4 % (11.6-14.6)
[2021-03-15 12:00] VITALS: BP 115/71
[2021-03-15 15:25] LABS: PLATELET ESTIMATE NORMAL
[2021-03-15 16:00] VITALS: BP 136/64
[2021-03-15] MEDS: FAMOTIDINE 20MG TABLET PO SCH (19:14)
[2021-03-15 20:00] VITALS: BP 118/52
[2021-03-15] MEDS: METRONIDAZOLE 250MG TABLET PO SCH (23:26)
[2021-03-16] VITALS (7 sets, daily range): BP systolic 76–140; BP diastolic 52–82
[2021-03-16] MEDS: ALBUTEROL 6.7GM HFA INHALER ORI SCH ×4 (04:34→22:00)
[2021-03-16] MEDS: BLOOD SUGAR DIAGNOSTIC STRIP TEST SCH ×4 (04:54→21:03)
[2021-03-16 07:49] LABS: HEMATOCRIT. 36.2 % (42.0-52.0); HEMOGLOBIN. 11.8 g/dL (14.0-18.0); MEAN CORPUSCULAR HEMOGLOBIN 29.7 pg (28.0-32.0); MEAN CORPUSCULAR VOLUME 90.7 fL (80.0-94.0); MEAN PLATELET VOLUME 10.1 fl (7.4-10.4); PLATELET 156 x1000/uL (130-400); RED BLOOD CELL COUNT 3.99 mill/uL (4.7-6.1); RED CELL DISTRIBUTION WIDTH 18.5 % (11.6-14.6)
[2021-03-16] MEDS: INSULIN LISPRO 100 UNITS/ML SUBCUT SCH ×4 (08:03→21:14)
[2021-03-16] MEDS: DEXAMETHASONE 4MG/ML 1ML VIAL IV SCH (09:15)
[2021-03-16] MEDS: METOPROLOL TARTRATE 25MG TABLET PO SCH ×2 (09:26→21:00)
[2021-03-16] MEDS ORDERED: SODIUM BICARBONATE 4% (2.4MEQ) 5ML VIAL IV ONE (09:49)
[2021-03-16] MEDS: METRONIDAZOLE 250MG TABLET PO SCH (11:47)
[2021-03-16 14:09] LABS: PLATELET ESTIMATE NORMAL
[2021-03-16 17:02] LABS: BG BASE EXCESS -3.1 mmol/L (-2.0-2.0); BG CARBOXYHEMOGLOBIN 0.7 % (0.5-1.5); BG DEOXYHEMOGLOBIN 3.8 % (0.0-5.0); BG FRACTION INSPIRED OXYGEN 21; BG METHEMOGLOBIN 0.2 % (0.0-1.5); BG OXYGEN SATURATION 96.2 % (92.0-98.5); BG OXYHEMOGLOBIN 95.3 % (94.0-97.0); BG PCO2 34.7 mmHg (35.0-45.0); BG SAMPLE SITE RIGHT BRACHIAL; BG TOTAL HEMOGLOBIN 12.2 g/dL (12.0-18.0); BG VENT MODE ROOM AIR
[2021-03-16] MEDS: FAMOTIDINE 20MG TABLET PO SCH (21:03)
[2021-03-17] VITALS: BP 126/80
[2021-03-17] MEDS: METRONIDAZOLE 250MG TABLET PO SCH ×3 (03:17→22:43)
[2021-03-17 04:00] VITALS: BP 120/57
[2021-03-17] MEDS: BLOOD SUGAR DIAGNOSTIC STRIP TEST SCH ×4 (05:59→20:31)
[2021-03-17] MEDS: INSULIN LISPRO 100 UNITS/ML SUBCUT SCH ×4 (06:11→20:31)
[2021-03-17] MEDS: ALBUTEROL 6.7GM HFA INHALER ORI SCH (06:12)
[2021-03-17 07:10] LABS: HEMATOCRIT. 36.4 % (42.0-52.0); MEAN CORPUSCULAR HEMOGLOBIN 30.1 pg (28.0-32.0); MEAN CORPUSCULAR VOLUME 91.3 fL (80.0-94.0); MEAN PLATELET VOLUME 11.1 fl (7.4-10.4); PLATELET 180 x1000/uL (130-400); RED BLOOD CELL COUNT 3.99 mill/uL (4.7-6.1); RED CELL DISTRIBUTION WIDTH 18.8 % (11.6-14.6)
[2021-03-17] MEDS: DEXAMETHASONE 4MG/ML 1ML VIAL IV SCH (09:53)
[2021-03-17] MEDS: METOPROLOL TARTRATE 25MG TABLET PO SCH ×2 (09:55→20:30)
[2021-03-17 12:00] VITALS: BP 129/65
[2021-03-17 12:46] LABS: PLATELET ESTIMATE NORMAL
[2021-03-17] MEDS ORDERED: LEVO250T58 MT (15:49)
[2021-03-17] MEDS ORDERED: APIX2.5T MT (15:49)
[2021-03-17] MEDS ORDERED: FAMO-135 PO (15:49)
[2021-03-17] MEDS ORDERED: DEXA4TAB PO (15:49)
[2021-03-17] MEDS ORDERED: ALBU90AE INH (15:49)
[2021-03-17 16:00] VITALS: BP 126/62
[2021-03-17] MEDS: APIXABAN 2.5 MG TABLET PO SCH (18:06)
[2021-03-17 20:00] VITALS: BP 124/96
[2021-03-17] MEDS: FAMOTIDINE 20MG TABLET PO SCH (20:29)
[2021-03-18] VITALS: BP 151/55
[2021-03-18 04:00] VITALS: BP 139/55
[2021-03-18] MEDS: BLOOD SUGAR DIAGNOSTIC STRIP TEST SCH (06:31)
[2021-03-18] MEDS: INSULIN LISPRO 100 UNITS/ML SUBCUT SCH (07:04)
[2021-03-18] MEDS: DEXAMETHASONE 4MG/ML 1ML VIAL IV SCH (08:28)
[2021-03-18] MEDS: APIXABAN 2.5 MG TABLET PO SCH (08:28)
[2021-03-18] MEDS: METOPROLOL TARTRATE 25MG TABLET PO SCH (08:28)
[2021-03-18 09:44] VITALS: BP 98/46
== END 2021-03-18 11:05 | disposition home or self-care (01) | DRG 871 ==
LOC: ER 20:56 → MICUSO 23:42 → 7WST 03-10 08:53 → 8WST 03-16 13:35
PROVIDERS: ADMIT Internal Medicine; ATTEND Internal Medicine
PROC: XW03396 Introduction of Ceftolozane/Tazobactam Anti-infective into Peripheral Vein, Percutaneous Approach, New Technology Group 6 (ICD-10-PCS; 2021-03-10)
PROC: 5A1D70Z Performance of Urinary Filtration, Intermittent, Less than 6 Hours Per Day (ICD-10-PCS; 2021-03-10)
PROC: 02HV33Z Insertion of Infusion Device into Superior Vena Cava, Percutaneous Approach (ICD-10-PCS; principal; 2021-03-11)
PROC: B548ZZA Ultrasonography of Superior Vena Cava, Guidance (ICD-10-PCS; 2021-03-11)
PROC: 5A1D70Z Performance of Urinary Filtration, Intermittent, Less than 6 Hours Per Day (ICD-10-PCS; 2021-03-11)
PROC: 5A1D70Z Performance of Urinary Filtration, Intermittent, Less than 6 Hours Per Day (ICD-10-PCS; 2021-03-12)
PROC: 0W993ZZ Drainage of Right Pleural Cavity, Percutaneous Approach (ICD-10-PCS; 2021-03-14)
PROC: 5A1D70Z Performance of Urinary Filtration, Intermittent, Less than 6 Hours Per Day (ICD-10-PCS; 2021-03-14)
PROC: 5A1D70Z Performance of Urinary Filtration, Intermittent, Less than 6 Hours Per Day (ICD-10-PCS; 2021-03-15)
PROC: 0W9B3ZZ Drainage of Left Pleural Cavity, Percutaneous Approach (ICD-10-PCS; 2021-03-16)
PROC: 5A1D70Z Performance of Urinary Filtration, Intermittent, Less than 6 Hours Per Day (ICD-10-PCS; 2021-03-18)
DX: A41.89 Other specified sepsis (principal); U07.1 COVID-19; J12.82 Pneumonia due to coronavirus disease 2019; N18.6 End stage renal disease; J96.00 Acute respiratory failure, unspecified whether with hypoxia or hypercapnia; D68.9 Coagulation defect, unspecified; E87.2 Acidosis; I13.2 Hypertensive heart and chronic kidney disease with heart failure and with stage 5 chronic kidney disease, or end stage renal disease; J44.0 Chronic obstructive pulmonary disease with (acute) lower respiratory infection; J98.11 Atelectasis; I50.42 Chronic combined systolic (congestive) and diastolic (congestive) heart failure; D64.9 Anemia, unspecified; E11.51 Type 2 diabetes mellitus with diabetic peripheral angiopathy without gangrene; R65.20 Severe sepsis without septic shock; E11.22 Type 2 diabetes mellitus with diabetic chronic kidney disease; E87.5 Hyperkalemia; I25.10 Atherosclerotic heart disease of native coronary artery without angina pectoris; F41.9 Anxiety disorder, unspecified; I25.2 Old myocardial infarction; Z87.11 Personal history of peptic ulcer disease; Z89.412 Acquired absence of left great toe; Z95.810 Presence of automatic (implantable) cardiac defibrillator; Z99.2 Dependence on renal dialysis; Z79.899 Other long term (current) drug therapy; Z87.01 Personal history of pneumonia (recurrent); Z82.49 Family history of ischemic heart disease and other diseases of the circulatory system; Z79.84 Long term (current) use of oral hypoglycemic drugs; Z79.01 Long term (current) use of anticoagulants
CPT/HCPCS: 32555; 36415; 36600; 71045; 74018; 76604; 76937; 80048; 80053; 80061; 80202; 82040; 82375; 82550; 82553; 82728; 82805; 82962; 83036; 83605; 83615; 83735; 83880; 84100; 84132; 84145; 84439; 84443; 84478; 84484; 85025; 85379; 86140; 86705; 86709; 86803; 87340; 87426; 88108; 88312; 93005; 93970; 94644; 97116; 97162; 97530; 99291; C1725; J0885; J1100; J1644; J1815; J2543; J3370; J3490; J7030; J7040; J7060; P9047; U0003; U0005